=== PATIENT | male | born 1945 | race Caucasian/White ===

== ENCOUNTER 2020-05-29 03:23 | Emergency (ER) | payer OTHER, MEDICARE ==
[2020-05-29] MEDS ORDERED: DIPH/PERTUSS(ACELL)/TETANUS VAC/PF 0.5 ML SYR (>=10YO) IM ONE (04:08)
[2020-05-29] MEDS ORDERED: LIDOCAINE 1% INJ-PF (10 MG/ML) 30 ML SDV INJ ONE (04:16)
--- NOTE | 2020-05-29 04:18 | ER Document Report ---
ED Wound - General Chief Complaint: Laceration Stated Complaint: FALL,FACE LACERATION Time Seen by Provider: 05/29/20 04:03 Primary Care Provider: ANDREAS BAEZ MD [Primary Care Provider] - Follow up as needed Mode of Arrival: Ambulatory Information source: Patient Notes: 75-year-old male patient presents the emergency department concern for laceration. Patient reports he was sitting on the side of his bed when he fell asleep and fell forward striking his forehead onto his nightstand. Patient reports this occurred just prior to arrival. He did not lose consciousness, woke up as soon as he started falling. He denies any nausea or vomiting. Does not know when his last tetanus was. Dr. Doan is his primary care provider. TRAVEL OUTSIDE OF THE [place] IN LAST 30 DAYS: No - Related Data Allergies/Adverse Reactions: Sulfa (Sulfonamide Antibiotics) Allergy (Verified 12/29/11 11:23) RASH Home Medications: low dose asa, metoprolol, doxazosin, setratline, gabapentin, protonix, atorvastatin, cilostazol Past Medical History - General Information source: Patient - Social History Smoking Status: Current Every Day Smoker Family History: Reviewed & Not Pertinent - Past Medical History Cardiac Medical History: Reports: Hx Hypertension - PIERCE CURIEL Denies: Hx Heart Attack Pulmonary Medical History: Denies: Hx Asthma Neurological Medical History: Denies: Hx Cerebrovascular Accident, Hx Seizures GI Medical History: Denies: Hx Hepatitis, Hx Hiatal Hernia, Hx Ulcer Infectious Medical History: Denies: Hx Hepatitis Past Surgical History: Denies: Hx Open Heart Surgery, Hx Pacemaker Review of Systems - Review of Systems Skin: See HPI Physical Exam - Vital signs Vitals: Temp Pulse Resp BP Pulse Ox 98.0 F 98 20 175/80 H 97 05/29/20 03:32 05/29/20 03:32 05/29/20 03:32 05/29/20 03:32 05/29/20 03:32 - Notes Notes: PHYSICAL EXAMINATION: GENERAL: Well-appearing, well-nourished and in no acute distress. HEAD: Atraumatic, normocephalic. EYES: Pupils equal round and reactive to light, extraocular movements intact, sclera anicteric, conjunctiva are normal. ENT: Nares patent, oropharynx clear without exudates. Moist mucous membranes. NECK: Normal range of motion, supple without lymphadenopathy LUNGS: Breath sounds clear to auscultation bilaterally and equal. No wheezes rales or rhonchi. HEART: Regular rate and rhythm without murmurs ABDOMEN: Soft, nontender, nondistended abdomen. No guarding, no rebound. No masses appreciated. Musculoskeletal: Normal range of motion, no pitting or edema. No cyanosis. NEUROLOGICAL: Cranial nerves grossly intact. Normal speech, normal gait. Normal sensory, motor exams PSYCH: Normal mood, normal affect. SKIN: Laceration noted to forehead just superior to right eyebrow, irregular, deep, no active bleeding noted. Course - Re-evaluation Re-evalutation: Facial Bones CT 05/29/20 04:07 IMPRESSION: There are no findings to suggest an acute fracture or subluxation within the face. There is mild right periorbital soft tissue swelling present. - Vital Signs Vital signs: Temp Pulse Resp BP Pulse Ox 98.0 F 74 20 118/97 H 99 05/29/20 03:32 05/29/20 07:00 05/29/20 07:00 05/29/20 07:00 05/29/20 07:00 - Laboratory Results Critical Laboratory Results Reviewed: No Critical Results - Radiology Results Critical Radiology Results Reviewed: No Critical Results Procedures - Laceration/Wound Repair facial Wound length (cm): 3 Wound's Depth, Shape: Irregular Anesthetic type: 1% Lidocaine Wound explored: Clean Wound Debrided: Minimal Wound Repaired With: Sutures Suture Size/Type: 5:0, 4:0 Number of Sutures: 6 Layer Closure?: No Post-procedure wound care: Sterile dressing applied Post-procedure NV exam normal: Yes Complications: No Discharge - Discharge Clinical Impression: Facial laceration Qualifiers: Encounter type: initial encounter Qualified Code(s): S01.81XA - Laceration without foreign body of other part of head, initial encounter Condition: Stable Disposition: HOME, SELF-CARE Additional Instructions: Laceration Care Your laceration has been sutured to keep the skin edges aligned during healing. The time of suture removal depends on the nature and location of your cut. Please follow the care instructions the doctor has outlined for you and return for further care, according to the schedule you've been given. Keep the wound and dressing clean. Unless you were told otherwise, you may shower daily, blotting the wound dry with a clean, unused towel. At other times, If the dressing gets wet or blood soaked, remove it and blot the wound dry, then reapply a new dressing. Unless you were instructed otherwise, dressings should be changed at least daily. If any signs of infection occur (swelling, redness, increasing tenderness, red streaks, tender lumps in the armpit or groin above the laceration, or fever), see the doctor immediately. Please return to the emergency department or your primary care provider in 7 days for suture removal. There were 4 sutures placed above your eyebrow and 2 sutures placed just above your eyelid. Please return earlier if you develop any signs of infection such as increased redness, swelling, foul-smelling drainage or fever. Referrals: ANDREAS BAEZ MD [Primary Care Provider] - Follow up as needed
--- NOTE | 2020-05-29 06:06 | RADIOLOGY REPORT (SQ) ---
CT OF THE FACE: 05/29/2020 5:03 AM DISTRIBUTION AGENT TECHNIQUE: Axial helical images were obtained through the face without intravenous contrast administered. Coronal and sagittal reformatted images were also obtained and examined. This exam was performed according to our departmental dose-optimization program, which includes automated exposure control, adjustment of the mA and/or KV according to the patient's size and/or use of iterative reconstruction technique. COMPARISON: None available HISTORY: 75-year old patient with fall, laceration over the left eyebrow. FINDINGS: There is mild mucoperiosteal thickening of the ethmoid sinuses. The mandible is intact. The visualized mastoid air cells appear clear. The bilateral zygomatic arches are intact. The temporal mandibular joints are symmetric. Evaluation of the maxilla is limited by some dental artifact. There is mild right periorbital soft tissue swelling present. There are no findings to suggest an acute fracture or subluxation. No fluid is seen in the mastoid air cells. The bilateral globes appear symmetric. There are degenerative changes seen at the visualized cervical spine. IMPRESSION: There are no findings to suggest an acute fracture or subluxation within the face. There is mild right periorbital soft tissue swelling present.
[2020-05-29 07:06] VITALS: BP 118/97
== END 2020-05-29 07:14 | disposition home or self-care (01) ==
LOC: ER 03:23
DX: W06.XXXA Fall from bed, initial encounter (principal); W22.03XA Walked into furniture, initial encounter; Y93.84 Activity, sleeping; F17.200 Nicotine dependence, unspecified, uncomplicated; I10 Essential (primary) hypertension; Z79.82 Long term (current) use of aspirin; Z79.899 Other long term (current) drug therapy; Z88.2 Allergy status to sulfonamides; Z23 Encounter for immunization
CPT/HCPCS: 99284; 90471; 70486; 90715; 12013; J3490

== ENCOUNTER 2020-06-06 16:39 | Inpatient (IN) | payer MEDICARE, OTHER ==
[2020-06-06] MEDS ORDERED: ACETAMINOPHEN 325 MG TABLET PO ONE (17:15)
[2020-06-06] MEDS ORDERED: RINGERS LACTATED IV ONE (17:15)
--- NOTE | 2020-06-06 17:18 | ER Document Report ---
ED Medical Screen (RME) - General Chief Complaint: Dizziness Stated Complaint: DISORIENTED/POST HEAD INJURY Time Seen by Provider: 06/06/20 17:06 Primary Care Provider: ANDREAS BAEZ MD [Primary Care Provider] - Follow up as needed Notes: Patient presents complaining of difficulty walking with his legs giving out that started yesterday. Patient denies any headache chest pain cough or shortness of breath. Patient states yesterday he had low back pain although complains of upper back pain today. Patient does have a history of chronic back pain and previous spinal surgery in the past. Patient with low-grade fever in triage, denies any history of recent fever. I have greeted and performed a rapid initial assessment of this patient. A comprehensive ED assessment and evaluation of the patient, analysis of test results and completion of the medical decision making process will be conducted by additional ED providers. TRAVEL OUTSIDE OF THE [place] IN LAST 30 DAYS: No - Related Data Allergies/Adverse Reactions: Sulfa (Sulfonamide Antibiotics) Allergy (Verified 12/29/11 11:23) RASH Past Medical History - Past Medical History Cardiac Medical History: Reports: Hx Hypertension - PIERCE CURIEL Denies: Hx Heart Attack Pulmonary Medical History: Denies: Hx Asthma Neurological Medical History: Denies: Hx Cerebrovascular Accident, Hx Seizures GI Medical History: Denies: Hx Hepatitis, Hx Hiatal Hernia, Hx Ulcer Infectious Medical History: Denies: Hx Hepatitis Past Surgical History: Denies: Hx Open Heart Surgery, Hx Pacemaker Physical Exam - Vital signs Vitals: Temp Pulse Resp BP Pulse Ox 100.3 F 127 H 22 H 83/53 L 95 06/06/20 17:12 06/06/20 17:12 06/06/20 17:12 06/06/20 17:12 06/06/20 17:12 - Cardiovascular Rhythm: Tachycardia Heart sounds: S1 appreciated, S2 appreciated - Back Back: Vertebra tenderness - Upper thoracic midline tenderness T4 area Course - Re-evaluation Re-evalutation: 06/06/20 17:18 Charge nurse advised of patient's status as well as vital signs and need for room. - Vital Signs Vital signs: Temp Pulse Resp BP Pulse Ox 100.3 F 127 H 22 H 83/53 L 95 06/06/20 17:12 06/06/20 17:12 06/06/20 17:12 06/06/20 17:12 06/06/20 17:12 Doctor's Discharge - Discharge Referrals: ANRDEAS BAEZ MD [Primary Care Provider] - Follow up as needed
--- NOTE | 2020-06-06 17:46 | EKG REPORT ---
SEVERITY:- ABNORMAL ECG - SINUS TACHYCARDIA RIGHT BUNDLE BRANCH BLOCK BORDERLINE INFERIOR Q WAVES : Confirmed by: Loc Wheatley MD 06-Jun-2020 17:46:06
--- NOTE | 2020-06-06 17:49 | RADIOLOGY REPORT (SQ) ---
EXAM DESCRIPTION: CT HEAD WITHOUT IMAGES COMPLETED DATE/TIME: 06/06/2020 5:34 pm REASON FOR STUDY: gait abnormality COMPARISON: None. TECHNIQUE: Axial images acquired through the brain without intravenous contrast. Images reviewed wi th bone, brain and subdural windows. Additional sagittal and coronal reconstructions were generated. Images stored on PACS. All CT scanners at this facility use dose modulation, iterative reconstruction, and/or weight based d osing when appropriate to reduce radiation dose to as low as reasonably achievable (ALARA). [facility]: Dose Right [facility]: CareDose [facility]: Dose Right [facility]: Teradose 4D [facility]: Smart [employer] RADIATION DOSE: CT Rad equipment meets quality standard of care and radiation dose reduction techniq ues were employed. CTDIvol: 53.2 mGy. DLP: 964 mGy-cm. mGy. LIMITATIONS: None. FINDINGS: VENTRICLES: Normal size and contour. CEREBRUM: No masses. No hemorrhage. No midline shift. No evidence for acute infarction. Normal gra y/white matter differentiation. No areas of low density in the white matter. CEREBELLUM: No masses. No hemorrhage. No alteration of density. No evidence for acute infarction. EXTRAAXIAL SPACES: No fluid collections. No masses. ORBITS AND GLOBE: No intra- or extraconal masses. Normal contour of globe without masses. CALVARIUM: No fracture. PARANASAL SINUSES: No fluid or mucosal thickening. SOFT TISSUES: No mass or hematoma. OTHER: No other significant finding. IMPRESSION: NORMAL BRAIN CT WITHOUT CONTRAST. EVIDENCE OF ACUTE STROKE: NO. COMMENT: Quality ID # [id number]: Final reports with documentation of one or more dose reduction techniques (e.g., Automated exposure control, adjustment of the mA and/or kV according to patient size, use of iterative reconstruction technique) TECHNICAL DOCUMENTATION: JOB ID: [id number] 2010 [employer]- All Rights Reserved Reading location - IP/workstation name: [email or web address]
--- NOTE | 2020-06-06 17:49 | RADIOLOGY REPORT (SQ) ---
EXAM DESCRIPTION: CHEST SINGLE VIEW IMAGES COMPLETED DATE/TIME: 06/06/2020 5:33 pm REASON FOR STUDY: weakness, hypotension COMPARISON: None. EXAM PARAMETERS: NUMBER OF VIEWS: One view. TECHNIQUE: Single frontal radiographic view of the chest acquired. RADIATION DOSE: NA LIMITATIONS: None. FINDINGS: LUNGS AND PLEURA: No opacities, masses or pneumothorax. No pleural effusion. MEDIASTINUM AND HILAR STRUCTURES: No masses. Contour normal. HEART AND VASCULAR STRUCTURES: Heart normal in size. Normal vasculature. BONES: No acute findings. HARDWARE: None in the chest. OTHER: No other significant finding. IMPRESSION: NO ACUTE RADIOGRAPHIC FINDING IN THE CHEST. TECHNICAL DOCUMENTATION: JOB ID: [id number] 2010 [employer]- All Rights Reserved Reading location - IP/workstation name: [email or web address]
--- NOTE | 2020-06-06 17:50 | RADIOLOGY REPORT (SQ) ---
EXAM DESCRIPTION: T SPINE AP/LAT IMAGES COMPLETED DATE/TIME: 06/06/2020 5:33 pm REASON FOR STUDY: upper back pain COMPARISON: None. NUMBER OF VIEWS: Two views. TECHNIQUE: AP and lateral radiographic images acquired of the thoracic spine. LIMITATIONS: None. FINDINGS: MINERALIZATION: Normal. ALIGNMENT: Normal. No scoliosis. VERTEBRAE: No fracture or bone lesion. Maintained height, normal segmentation. DISCS: No significant loss of height or significant narrowing. No large osteophytes. HARDWARE: None in the spine. MEDIASTINUM AND SOFT TISSUES: Normal heart size and aortic contour. No soft tissue abnormality. VISUALIZED LUNG BLACK: Clear. OTHER: No other significant finding. IMPRESSION: NO SIGNIFICANT RADIOGRAPHIC FINDING IN THE THORACIC SPINE. TECHNICAL DOCUMENTATION: JOB ID: [id number] 2010 [employer]- All Rights Reserved Reading location - IP/workstation name: [email or web address]
[2020-06-06 18:09] LABS: ABSOLUTE BASOPHILS # (AUTO) 0.1 10^3/uL (0.0-0.2); ABSOLUTE LYMPHOCYTES (AUTO) 1.1 10^3/uL (0.5-4.7); ABSOLUTE MONOCYTES (AUTO) 2.2 10^3/uL (0.1-1.4); ABSOLUTE NEUT (AUTO) 15.5 10^3/uL (1.7-8.2); BASOPHILS % (AUTO) 0.3 % (0-2); EOSINOPHILS % (AUTO) 0.1 % (0-6); HEMATOCRIT 38.3 % (37.9-51.0); HEMOGLOBIN 13.2 g/dL (13.5-17.0); LYMPHOCYTES % (AUTO) 5.6 % (13-45); MEAN CORPUSCULAR HEMOGLOBIN 31.6 pg (27.0-33.4); MEAN CORPUSCULAR HGB CONC 34.5 g/dL (32.0-36.0); MEAN CORPUSCULAR VOLUME 92 fl (80-97); MONOCYTES % (AUTO) 11.6 % (3-13); PLATELET COUNT 215 10^3/uL (150-450); RED BLOOD COUNT 4.18 10^6/uL (4.35-5.55); SEGMENTED NEUTROPHILS % (AUTO) 82.4 % (42-78); TOTAL CELLS COUNTED % (AUTO) 100 %; WHITE BLOOD COUNT 18.8 10^3/uL (4.0-10.5)
[2020-06-06 18:10] LABS: VENOUS BLOOD BASE EXCESS -0.5 mmol/L; VENOUS BLOOD HCO3 22.1 mmol/L (20-32); VENOUS BLOOD PCO2 31.6 mmHg (35-63); VENOUS BLOOD PH 7.46 (7.30-7.42)
[2020-06-06 18:14] LABS: INTERNATIONAL RATION (INR) 1.21; PROTHROMBIN TIME 15.5 SEC (11.4-15.4)
[2020-06-06 18:28] LABS: ALBUMIN 3.6 g/dL (3.5-5.0); ALKALINE PHOSPHATASE 91 U/L (38-126); ANION GAP 10 (5-19); ASPARTATE AMINO TRANSFERASE 25 U/L (17-59); BILIRUBIN,TOTAL 1.1 mg/dL (0.2-1.3); BLOOD UREA NITROGEN 21 mg/dL (7-20); CALCIUM 9.4 mg/dL (8.4-10.2); CARBON DIOXIDE 23 mmol/L (22-30); CHLORIDE 99 mmol/L (98-107); GLUCOSE 135 mg/dL (75-110); POTASSIUM 4.3 mmol/L (3.6-5.0); TOTAL PROTEIN 6.6 g/dL (6.3-8.2)
--- NOTE | 2020-06-06 18:33 | ER Document Report ---
ED General - General Chief Complaint: Dizziness Stated Complaint: DISORIENTED/POST HEAD INJURY Time Seen by Provider: 06/06/20 17:06 Primary Care Provider: ANDREAS BAEZ MD [Primary Care Provider] - Follow up as needed TRAVEL OUTSIDE OF THE [place] IN LAST 30 DAYS: No - HPI Notes: 75-year-old male presents with generalized weakness. Patient states that he had a recent fall from standing, he hit his face against a nightstand. He states that he was seen and evaluated at another hospital, he had stitches placed, stitches were removed yesterday. Patient states that he was diagnosed with a concussion, he notes that he has been sleeping a lot more than usual. The last time he fell was about a year ago. Patient states that today he seemed to have some generalized weakness. He states that when he tried to stand up and walk, he felt his legs jerk and go out from under him, he states that he felt like he could not use his legs and needed to be carried. He reports some dizziness as well. States that he did not fall today. Patient states he has chronic low back pain, he has had surgery on his back before. He denies chest pain. Denies shortness of breath, states that he has a smoker's cough. He denies abdominal pain, nausea, vomiting or diarrhea. He denies dysuria. - Related Data Allergies/Adverse Reactions: Sulfa (Sulfonamide Antibiotics) Allergy (Verified 12/29/11 11:23) RASH Past Medical History - General Information source: Patient - Social History Smoking Status: Current Every Day Smoker Family History: Reviewed & Not Pertinent - Past Medical History Cardiac Medical History: Reports: Hx Hypertension - PIERCE CURIEL Denies: Hx Heart Attack Pulmonary Medical History: Denies: Hx Asthma Neurological Medical History: Denies: Hx Cerebrovascular Accident, Hx Seizures GI Medical History: Denies: Hx Hepatitis, Hx Hiatal Hernia, Hx Ulcer Infectious Medical History: Denies: Hx Hepatitis Past Surgical History: Denies: Hx Open Heart Surgery, Hx Pacemaker Review of Systems - Review of Systems Constitutional: denies: Fever EENT: No symptoms reported Cardiovascular: denies: Chest pain Respiratory: denies: Short of breath Gastrointestinal: denies: Abdominal pain, Diarrhea, Nausea, Vomiting Genitourinary: denies: Dysuria Male Genitourinary: No symptoms reported Musculoskeletal: Back pain Skin: No symptoms reported Hematologic/Lymphatic: No symptoms reported Neurological/Psychological: See HPI Physical Exam - Vital signs Vitals: Temp Pulse Resp BP Pulse Ox 100.3 F 127 H 22 H 83/53 L 95 06/06/20 17:12 06/06/20 17:12 06/06/20 17:12 06/06/20 17:12 06/06/20 17:12 - General General appearance: Appears well, Alert In distress: None - HEENT Head: Normocephalic, Atraumatic Extraocular movements intact: Yes Pupils: PERRL - Respiratory Breath sounds: Normal - Cardiovascular Rhythm: Regular Heart sounds: Normal auscultation - Abdominal Distension: No distension Bowel sounds: Normal Tenderness: Nontender - Back Back: Tender - Bilateral lumbosacral area - Extremities General upper extremity: Normal ROM General lower extremity: Normal ROM. No: Edema - Neurological Neuro grossly intact: Yes Cognition: Normal Orientation: AAOx4 Notes: Face is symmetric, speech is clear. Strength 5/5 upper extremities, he is able to use his arms to sit himself up in bed. Strength is 4/5 in the lower extremities, he has symmetric dorsiflexion and plantarflexion, he is able to lift both legs off the bed though is only able to hold his legs up for a few seconds. Sensation is grossly intact to lower extremities. No saddle anesthesia. - Psychological Associated symptoms: Normal affect - Skin Skin Temperature: Warm Course - Re-evaluation Re-evalutation: 75-year-old male here with generalized weakness and difficulty ambulating today. On arrival, patient's vitals were notable for temperature 100.3, heart rate 127, BP 83/53. By the time of my evaluation patient's heart rate had decreased to 109 and blood pressure had improved to 123/50. Patient is alert and oriented, he is nontoxic-appearing. He is grossly neurologically intact, I currently do not have evidence of saddle anesthesia or unilateral deficit. He has symmetric 4-5 weakness to his legs, however he has intact motor and sensation. Given his almost fever and vital signs, I am concerned for source of infection. He had a head CT, chest x-ray and thoracic spine x-ray done through triage which are negative for acute findings. I have added on a lumbar MRI to see if there is any evidence of discitis or epidural abscess as he has had surgeries here in the past. He does have a leukocytosis of almost 19 with a left shift. Elevated creatinine of 2, no previous available for comparison. I added on a CRP which was elevated as well. Patient is undergoing fluid resuscitation. Cultures have been sent. 06/07/20 00:59 MRI lumbar spine does not demonstrate pathologic contrast enhancement, no epidural abscess or hematoma. Urine not suggestive of UTI, does have microscopic hematuria. Lactic has down trended. I went in to discuss work-up so far with patient. He reports he is actually feeling much better and he can "do more with my legs than I could all day", meaning that he is able to stand up and bear weight. Patient continues to be neurologically intact, motor and sensory intact to his lower extremities. Have ordered a repeat BMP to see if ?ALEKSANDR has improved. Have also ordered CT abdomen to see if there is any evidence of intra-abdominal infection could be attributing to his presentation today 06/07/20 01:34 Creatinine with some improvement 06/07/20 02:13 Patient signed out, pending CT abdomen. If negative, I do believe patient will need admission for further work-up of what is causing his substantial maisha kocytosis - Vital Signs Vital signs: Temp Pulse Resp BP Pulse Ox 100.3 F 100 39 H 106/37 L 97 06/06/20 17:12 06/06/20 19:40 06/06/20 20:01 06/06/20 20:01 06/06/20 19:40 - Laboratory Results Result Diagrams: 06/06/20 17:50 06/07/20 01:00 Laboratory Results Interpreted: 06/06/20 06/06/20 06/06/20 17:50 17:50 17:50 WBC 18.8 H RBC 4.18 L Hgb 13.2 L Lymph % (Auto) 5.6 L Absolute Neuts (auto) 15.5 H Absolute Monos (auto) 2.2 H Seg Neutrophils % 82.4 H PT 15.5 H VBG pH VBG pCO2 Sodium BUN Creatinine Est GFR ( Amer) Est GFR (MDRD) Non-Af Glucose Lactic Acid 2.2 H C-Reactive Protein Urine Protein Urine Blood 06/06/20 06/06/20 06/06/20 17:50 17:50 17:50 WBC RBC Hgb Lymph % (Auto) Absolute Neuts (auto) Absolute Monos (auto) Seg Neutrophils % PT VBG pH 7.46 H VBG pCO2 31.6 L Sodium 131.6 L BUN 21 H Creatinine 2.06 H Est GFR ( Amer) 38 L Est GFR (MDRD) Non-Af 32 L Glucose 135 H Lactic Acid C-Reactive Protein 165.5 H Urine Protein Urine Blood 06/07/20 06/07/20 00:15 01:00 WBC RBC Hgb Lymph % (Auto) Absolute Neuts (auto) Absolute Monos (auto) Seg Neutrophils % PT VBG pH VBG pCO2 Sodium 131.8 L BUN 27 H Creatinine 1.89 H Est GFR ( Amer) 43 L Est GFR (MDRD) Non-Af 35 L Glucose Lactic Acid C-Reactive Protein Urine Protein 30 H Urine Blood SMALL H Critical Laboratory Results Reviewed: No Critical Results - Radiology Results Critical Radiology Results Reviewed: No Critical Results - EKG Interpretation by Me Additional EKG results interpreted by me: EKG is interpreted by me. Sinus tachycardia, rate 114. RBBB. QTc within normal limits. No ST segment elevation. Discharge - Discharge Clinical Impression: Leukocytosis Qualifiers: Leukocytosis type: unspecified Qualified Code(s): D72.829 - Elevated white blood cell count, unspecified Disposition: OTHER Referrals: ANDREAS BAEZ MD [Primary Care Provider] - Follow up as needed
[2020-06-06] MEDS ORDERED: LORAZEPAM INJ 2 MG/1 ML VIAL IV PRN (20:03)
--- NOTE | 2020-06-06 22:44 | RADIOLOGY REPORT (SQ) ---
MRI lumbar spine with and without contrast on 06/06/2020 at 10:01 PM CLINICAL INDICATION: Fever, low back pain that radiates down legs, leg weakness TECHNIQUE: Multiplanar, multisequence MR images are obtained throughout the lumbar spine both prior to and following the administration of IV gadolinium contrast. This examination was performed on a 1.5 Alyse magnet. COMPARISON: None FINDINGS: Motion limits some of the exam. On the rn travel images there is suggestion of massive distention of the urinary bladder that is incompletely imaged and cannot verify this is a bladder versus possibly large cystic mass. Would recommend CT of the abdomen and pelvis to better evaluate. There is disc desiccation and degeneration of the lumbar disks. There is a transitional lumbosacral vertebral body. Iliolumbar ligaments are visualized on axial image 28 of series 7 labeling this as L5 which makes some lumbarization of S1 with rudimentary S1-S2 disc. There is normal signal within the conus which terminates at a normal level. There is minimal grade 1 spondylolisthesis at L4-5 secondary to degenerative facet disease. There is slight leftward curvature of the lower lumbar spine. Vertebral body height, alignment and signal intensity is otherwise unremarkable. There is no pathologic contrast enhancement. No epidural collection to suggest epidural abscess or hematoma is noted. At the L2-3 level, minimal broad-based disc bulge produces minimal canal stenosis and mild left foraminal narrowing. At the L3-4 level, mild broad-based disc bulge and facet arthropathy produces mild canal stenosis and mild bilateral foraminal narrowing. At the L4-5 level, mild broad-based disc bulge and facet arthropathy produces mild to moderate canal stenosis and moderate right and mild to moderate left foraminal narrowing. At the L5-S1 level, mild broad-based disc bulge and facet arthropathy produces mild canal stenosis and [id number] right foraminal narrowing. IMPRESSION: 1. Probable massive distention of the urinary bladder that is incompletely imaged, would recommend follow-up CT of the abdomen and pelvis to better evaluate. 2. Diffuse degenerative disc disease and facet arthropathy producing some levels of canal stenosis and foraminal narrowing as above.
[2020-06-07 00:49] LABS: APPEARANCE,URINE SLIGHTLY-CLOUDY; BILIRUBIN,URINE NEGATIVE (NEGATIVE); COLOR,URINE YELLOW; GLUCOSE, URINE NEGATIVE (NEGATIVE); KETONES,URINE NEGATIVE (NEGATIVE); PROTEIN,URINE 30 mg/dL (NEGATIVE); URINE SPECIFIC GRAVITY 1.016; UROBILINOGEN,URINE NEGATIVE mg/dL (<2.0)
[2020-06-07 01:31] LABS: ANION GAP 6 (5-19); BLOOD UREA NITROGEN 27 mg/dL (7-20); CALCIUM 8.8 mg/dL (8.4-10.2); CARBON DIOXIDE 26 mmol/L (22-30); CHLORIDE 100 mmol/L (98-107); GLUCOSE 104 mg/dL (75-110)
--- NOTE | 2020-06-07 03:01 | RADIOLOGY REPORT (SQ) ---
CT abdomen and pelvis with contrast on 06/07/2020 at 2:35 AM CLINICAL INDICATION: Fever, low back pain TECHNIQUE: Multiple axial images are obtained throughout the abdomen and pelvis following the administration of IV contrast, 100 mL of Omnipaque 300contrast was administered intravenously without complication. This exam was performed according to our departmental dose-optimization program, which includes automated exposure control, adjustment of the mA and/or kV according to patient size and/or use of iterative reconstruction technique. Total DLP is 2858.91 mGy*cm. COMPARISON: None FINDINGS: Abdomen: There is minimal basilar atelectasis or scarring. Gallstones are noted within distended gallbladder. There is significant gallbladder wall thickening with surrounding fat stranding consistent with acute cholecystitis, recommend surgical consultation. There is a focal outpouching along the superior aspect of the gallbladder involving the area of mucosal enhancement seen well on sagittal images 24 through 26 and between coronal images 29 and 41. There is no evidence of gallbladder perforation but the appearance raises a question of some weakening of the gallbladder wall in this region. The solid abdominal organs are otherwise unremarkable. Vascular calcifications are noted. There is no abdominal adenopathy. There is no free fluid or free air within the abdomen. There is mild diverticulosis. The abdominal portion of the GI tract is otherwise unremarkable. Pelvis: There is significant plaque in the proximal right common iliac artery producing likely approximate 70% stenosis, please correlate with any right lower extremity symptoms and consider vascular surgery consultation on a nonemergent basis. There is massive enlargement of the urinary bladder with apparently a bladder diverticulum along the posterior right aspect of the bladder containing multiple bladder stones. Urinary bladder extends above the umbilicus and would recommend Du catheter placement. The prostate is mildly enlarged, please correlate with physical exam and PSA levels. There is no pelvic adenopathy. There is no free fluid in the pelvis. There is diverticulosis. The pelvic portion of the GI tract is otherwise unremarkable. Degenerative changes are noted in the spine. IMPRESSION: 1. Cholelithiasis with findings consistent with acute cholecystitis, recommend surgical consultation. 2. Massive urinary bladder distention with multiple bladder stones within apparent bladder diverticulum. Consider Du catheter placement. 3. Diverticulosis. 4. Mild prostate enlargement. 5. Likely approximate 70% stenosis in the right common iliac artery, please correlate with any right lower extremity symptoms and consider nonemergent vascular surgery consultation.
[2020-06-07] MEDS ORDERED: PIPERACILLIN/TAZOBACTAM 4.5 GM VIAL IV ONE ×2 (03:07→06:00)
--- NOTE | 2020-06-07 05:46 | ER Document Report ---
Doctor's Note Notes: 06/07/20 05:45 Patient was signed out to me pending CT results. CT shows acute cholecystitis and an enlarged bladder. Du was placed and patient had about 3 L out. I discussed with surgery, Dr. German, who will come evaluate the patient. He was started on Zosyn. Disposition is pending surgery consult. Patient has been updated on the plan. Dr. German stated that patient should be admitted medically due to his multiple medical problems as he will need to be cleared for surgery. 06/07/20 06:24
--- NOTE | 2020-06-07 06:59 | PDOC CONSULTATION ---
Consultation Consult Date: 06/07/20 Provider Consulted: GARRY TOMLINSON Consult reason:: Acute cholecystitis, cholelithiasis History of Present Illness Admission Date/PCP: ANDREAS BAEZ MD History of Present Illness: LORETO GUERRERO is a 75 year old male Presents to the emergency department via ground rescue for the second time in several weeks to collapsing. Patient poor historian. Apparently patient falls asleep while sitting up. His fall 2 weeks ago resulted in facial soft tissue trauma requiring laceration closure at an outlying hospital. Patient presents to [facility] yesterday complaining of back pain, inability to move his legs properly. He has a history of degenerative disc disease, and 2 previous lower back surgeries. He was found to be tachycardic and hypotensive and responded to flu id resuscitation. He had an extensive work-up including MRI scans of his back, CT scans of his chest abdomen and brain. These studies revealed extensive lower back degenerative disc disease, massively distended urinary bladder with multiple kidney stones, distended gallbladder, gallbladder wall thickening and multiple gallstones, extensive atherosclerotic peripheral vascular disease, with near occlusion of the right common iliac artery. Patient Covid test negative. He had a leukocytosis of 19,000. Surgery was consulted and patient evaluated and advised admission to the medicine service. While in the emergency department patient's blood pressure and heart rate stabilized; Du catheter was inserted with drainage of over 3500 cc of urine. Past Medical History Past Medical History: Atherosclerotic peripheral vascular disease, degenerative disc disease, urinary retention, nephrolithiasis, acute cholecystitis with cholelithiasis, prostatism Cardiac Medical History: Reports: Hypertension - BINH CURIELZASHIRA Denies: Myocardial Infarction Pulmonary Medical History: Denies: Asthma Neurological Medical History: Denies: Seizures GI Medical History: Denies: Hepatitis, Hiatal Hernia Hematology: Denies: Anemia, Sickle Cell Disease Past Surgical History Past Surgical History: Struve appendectomy, open lumbar surgery x2 Past Surgical History: Denies: Pacemaker Social History Information Source: Patient Smoking Status: Current Every Day Smoker Frequency of Alcohol Use: Social Family History Family History: None, Reviewed & Not Pertinent Parental Family History Reviewed: No Children Family History Reviewed: No Sibling(s) Family History Reviewed.: No Medication/Allergy Home Medications: Doxazosin Mesylate [Cardura 1 Mg Tablet] 1 mg PO DAILY 12/29/11 Gabapentin [Neurontin 300 Mg Capsule] 300 mg PO DAILY 12/29/11 Losartan Potassium [Cozaar 50 Mg Tablet] 50 mg PO DAILY 12/29/11 Sertraline HCl [Zoloft 50 Mg Tablet] 50 mg PO 12/29/11 Allergies/Adverse Reactions: Sulfa (Sulfonamide Antibiotics) Allergy (Verified 12/29/11 11:23) RASH Review of Systems Constitutional: PRESENT: as per HPI Eyes: PRESENT: other - Recent facial trauma Cardiovascular: PRESENT: as per HPI Genitourinary: PRESENT: as per HPI Musculoskeletal: PRESENT: other - Lower extremity weakness Neurological: PRESENT: frequent falls Physical Exam Vital Signs: Temp Pulse Resp BP Pulse Ox 100.3 F 100 39 H 106/37 L 97 06/06/20 17:12 06/06/20 19:40 06/06/20 20:01 06/06/20 20:01 06/06/20 19:40 Intake & Output 06/05/20 06/06/20 06/07/20 06:59 06:59 06:59 Intake Total 3120 Balance 3120 Weight 104.1 kg General appearance: PRESENT: mild distress Head exam: PRESENT: normocephalic Eye exam: PRESENT: other - Recent lacerations the Teeth exam: PRESENT: dental caries Neck exam: PRESENT: full ROM Respiratory exam: PRESENT: rhonchi Pulses: PRESENT: normal carotid pulses, normal radial pulses, other - Unable to palpate right common femoral artery pulse GI/Abdominal exam: PRESENT: other - Extreme right upper quadrant tenderness with guarding; remainder of abdomen soft. Indwelling Du catheter Rectal exam: PRESENT: deferred Extremities exam: PRESENT: +1 edema, other - Able to move legs in bed against mild resistance Skin exam: PRESENT: dry Results Laboratory Results: 06/06/20 17:50 06/07/20 01:00 06/06/20 06/06/20 06/06/20 17:50 17:50 17:50 WBC 18.8 H RBC 4.18 L Hgb 13.2 L Hct 38.3 MCV 92 MCH 31.6 MCHC 34.5 RDW 14.0 Plt Count 215 Seg Neutrophils % 82.4 H VBG pH VBG pCO2 VBG HCO3 VBG Base Excess Sodium 131.6 L Potassium 4.3 Chloride 99 Carbon Dioxide 23 Anion Gap 10 BUN 21 H Creatinine 2.06 H Est GFR ( Amer) 38 L Glucose 135 H Lactic Acid 2.2 H Calcium 9.4 Total Bilirubin 1.1 AST 25 Alkaline Phosphatase 91 C-Reactive Protein Total Protein 6.6 Albumin 3.6 Urine Color Urine Appearance Urine pH Ur Specific [place] Urine Protein Urine Glucose (UA) Urine Ketones Urine Blood Urine RBC (Auto) 06/06/20 06/06/20 06/06/20 17:50 17:50 22:30 WBC RBC Hgb Hct MCV MCH MCHC RDW Plt Count Seg Neutrophils % VBG pH 7.46 H VBG pCO2 31.6 L VBG HCO3 22.1 VBG Base Excess -0.5 Sodium Potassium Chloride Carbon Dioxide Anion Gap BUN Creatinine Est GFR ( Amer) Glucose Lactic Acid 1.4 Calcium Total Bilirubin AST Alkaline Phosphatase C-Reactive Protein 165.5 H Total Protein Albumin Urine Color Urine Appearance Urine pH Ur Specific [place] Urine Protein Urine Glucose (UA) Urine Ketones Urine Blood Urine RBC (Auto) 06/07/20 06/07/20 06/07/20 00:15 01:00 05:35 WBC RBC Hgb Hct MCV MCH MCHC RDW Plt Count Seg Neutrophils % VBG pH VBG pCO2 VBG HCO3 VBG Base Excess Sodium 131.8 L Potassium 4.0 Chloride 100 Carbon Dioxide 26 Anion Gap 6 BUN 27 H Creatinine 1.89 H Est GFR ( Amer) 43 L Glucose 104 Lactic Acid 1.2 Calcium 8.8 Total Bilirubin AST Alkaline Phosphatase C-Reactive Protein Total Protein Albumin Urine Color YELLOW Urine Appearance SLIGHTLY-CLOUDY Urine pH 7.0 Ur Specific [place] 1.016 Urine Protein 30 H Urine Glucose (UA) NEGATIVE Urine Ketones NEGATIVE Urine Blood SMALL H Urine RBC (Auto) 61 Impressions: Chest X-Ray 06/06/20 17:15 IMPRESSION: NO ACUTE RADIOGRAPHIC FINDING IN THE CHEST. Thoracic Spine X-Ray 06/06/20 17:15 IMPRESSION: NO SIGNIFICANT RADIOGRAPHIC FINDING IN THE THORACIC SPINE. Head CT 06/06/20 17:27 IMPRESSION: NORMAL BRAIN CT WITHOUT CONTRAST. EVIDENCE OF ACUTE STROKE: NO. Lumbar Spine MRI 06/06/20 18:46 IMPRESSION: 1. Probable massive distention of the urinary bladder that is incompletely imaged, would recommend follow-up CT of the abdomen and pelvis to better evaluate. 2. Diffuse degenerative disc disease and facet arthropathy producing some levels of canal stenosis and foraminal narrowing as above. Abdomen/Pelvis CT 06/07/20 00:56 IMPRESSION: 1. Cholelithiasis with findings consistent with acute cholecystitis, recommend surgical consultation. 2. Massive urinary bladder distention with multiple bladder stones within apparent bladder diverticulum. Consider Du catheter placement. 3. Diverticulosis. 4. Mild prostate enlargement. 5. Likely approximate 70% stenosis in the right common iliac artery, please correlate with any right lower extremity symptoms and consider nonemergent vascular surgery consultation. Assessment & Plan - Diagnosis (1) Sepsis Is this a current diagnosis for this admission?: Yes Plan: Impression: Acute septic episode with dynamic instability, now responding to fluid resuscitation; primary source likely acute cholecystitis with cholelithiasis. Recommendations: 1. Continue fluids, intravenous antibiotic resuscitation; admit to hospitalist service with surgery consulting-this was discussed with sieve maker, as well as emergency room physician. 2. Keep n.p.o. 3. I have spoken with Dr. Loc Wheatley, watch crystal edge grinder, who will see patient in consultation, obtain echocardiogram, and assess perioperative cardiac risk 4. Will eventually require laparoscopic, possible open cholecystectomy. (2) Leukocytosis Qualifiers: Leukocytosis type: unspecified Qualified Code(s): D72.829 - Elevated white blood cell count, unspecified (3) Atherosclerotic peripheral vascular disease Is this a current diagnosis for this admission?: Yes (4) Cholecystitis, acute with cholelithiasis Is this a current diagnosis for this admission?: Yes (5) Urinary retention Is this a current diagnosis for this admission?: Yes (6) Abuse of smoked substance Is this a current diagnosis for this admission?: Yes (7) Degenerative disc disease Is this a current diagnosis for this admission?: Yes - Time Time Spent: 30 to 50 Minutes Smoking Cessation Education: over 10 minutes Medications reviewed and adjusted accordingly: Yes Anticipated discharge: Home - Inpatient Certification Based on my medical assessment, after consideration of the patient's comorbidities, presenting symptoms, or acuity I expect that the services needed warrant INPATIENT care.: Yes I certify that my determination is in accordance with my understanding of Medicare's requirements for reasonable and necessary INPATIENT services [42 CFR 412.3e].: Yes Medical Necessity: Need For IV Fluids, Need for Pain Control, Need for IV Antibiotics, Need for Surgery
[2020-06-07] MEDS ORDERED: ONDANSETRON HCL INJ/PF 4 MG/2 ML SDV IV PRN (08:00)
[2020-06-07] MEDS ORDERED: ACETAMINOPHEN 325 MG TABLET PO PRN (08:00)
[2020-06-07] MEDS ORDERED: HYDRALAZINE HCL INJ/PF 20 MG/1 ML SDV IV PRN (08:43)
--- NOTE | 2020-06-07 08:44 | PDOC H&P ---
History of Present Illness Admission Date/PCP: ANDREAS BAEZ MD Patient complains of: Patient came to the emergency room with nonspecific symptoms, found to have acute cholecystitis. History of Present Illness: LORETO GUERRERO is a 75 year old male with history of hypertension, chronic smoker, severe peripheral vascular disease, chronic back pain with multiple surgeries, has urinary retention Du's catheter was placed in the emergency room, past 3 L of urine as per the patient came to the emergency room with complaints of falls and weakness extensive work-up was done found to have acute cholecystitis. Surgery was consulted their impression is patient need c ardiology clearance prior to surgery. Past Medical History Cardiac Medical History: Reports: Hypertension - CARDURA, COZAAR Denies: Myocardial Infarction Pulmonary Medical History: Denies: Asthma Neurological Medical History: Denies: Seizures Renal/ Medical History: Reports: None Malignancy Medical History: Reports: None GI Medical History: Denies: Hepatitis, Hiatal Hernia Musculoskeltal Medical History: Reports: None Psychiatric Medical History: Reports: None Traumatic Medical History: Reports: None Hematology: Denies: Anemia, Sickle Cell Disease Past Surgical History Past Surgical History: Denies: Pacemaker Social History Smoking Status: Current Every Day Smoker Frequency of Alcohol Use: Social - Advance Directive Resuscitation Status: Do Not Resuscitate Family History Family History: None, Reviewed & Not Pertinent Family History: Hypertension Parental Family History Reviewed: Yes - Hypertension Children Family History Reviewed: Yes Sibling(s) Family History Reviewed.: Yes Medication/Allergy Home Medications: Doxazosin Mesylate [Cardura 1 Mg Tablet] 1 mg PO DAILY 12/29/11 Gabapentin [Neurontin 300 Mg Capsule] 300 mg PO DAILY 12/29/11 Losartan Potassium [Cozaar 50 Mg Tablet] 50 mg PO DAILY 12/29/11 Sertraline HCl [Zoloft 50 Mg Tablet] 50 mg PO 12/29/11 Allergies/Adverse Reactions: Sulfa (Sulfonamide Antibiotics) Allergy (Verified 12/29/11 11:23) RASH Review of Systems Constitutional: PRESENT: fatigue, weakness. ABSENT: chills, fever(s), headache(s) Eyes: ABSENT: visual disturbances Ears: ABSENT: hearing changes Nose, Mouth, and Throat: ABSENT: sore throat Cardiovascular: ABSENT: palpitations Respiratory: ABSENT: cough, hemoptysis Gastrointestinal: ABSENT: abdominal pain, constipation, diarrhea, hematemesis, hematochezia, nausea, vomiting Musculoskeletal: ABSENT: joint swelling Neurological: ABSENT: abnormal gait, abnormal speech, confusion, dizziness, focal weakness, syncope Psychiatric: ABSENT: anxiety, depression, homidical ideation, suicidal ideation Endocrine: ABSENT: cold intolerance, heat intolerance, polydipsia, polyuria Physical Exam Vital Signs: Temp Pulse Resp BP Pulse Ox 100.3 F 93 20 173/70 H 96 06/06/20 17:12 06/07/20 01:00 06/07/20 07:31 06/07/20 07:31 06/07/20 07:31 Intake & Output 06/06/20 06/07/20 06/08/20 06:59 06:59 06:59 Intake Total 3120 Balance 3120 Weight 104.1 kg General appearance: PRESENT: no acute distress, obese Eye exam: PRESENT: PERRLA Ear exam: PRESENT: normal external ear exam Teeth exam: PRESENT: poor dentation Neck exam: ABSENT: carotid bruit, JVD, lymphadenopathy, thyromegaly Respiratory exam: PRESENT: decreased breath sounds Cardiovascular exam: PRESENT: RRR. ABSENT: diastolic murmur, rubs, systolic murmur Pulses: PRESENT: normal dorsalis pedis pul GI/Abdominal exam: PRESENT: normal bowel sounds, soft. ABSENT: distended, guarding, mass, organolmegaly, rebound, tenderness Rectal exam: PRESENT: deferred Extremities exam: PRESENT: full ROM. ABSENT: calf tenderness, clubbing, pedal edema Neurological exam: PRESENT: alert, awake, oriented to person, oriented to place, oriented to time, oriented to situation, CN II-XII grossly intact. ABSENT: motor sensory deficit Psychiatric exam: PRESENT: appropriate affect, normal mood. ABSENT: homicidal ideation, suicidal ideation Results Laboratory Results: 06/06/20 17:50 06/07/20 01:00 06/06/20 06/06/20 06/06/20 17:50 17:50 17:50 WBC 18.8 H RBC 4.18 L Hgb 13.2 L Hct 38.3 MCV 92 MCH 31.6 MCHC 34.5 RDW 14.0 Plt Count 215 Seg Neutrophils % 82.4 H VBG pH VBG pCO2 VBG HCO3 VBG Base Excess Sodium 131.6 L Potassium 4.3 Chloride 99 Carbon Dioxide 23 Anion Gap 10 BUN 21 H Creatinine 2.06 H Est GFR ( Amer) 38 L Glucose 135 H Lactic Acid 2.2 H Calcium 9.4 Total Bilirubin 1.1 AST 25 Alkaline Phosphatase 91 C-Reactive Protein Total Protein 6.6 Albumin 3.6 Urine Color Urine Appearance Urine pH Ur Specific [place] Urine Protein Urine Glucose (UA) Urine Ketones Urine Blood Urine RBC (Auto) 06/06/20 06/06/20 06/06/20 17:50 17:50 22:30 WBC RBC Hgb Hct MCV MCH MCHC RDW Plt Count Seg Neutrophils % VBG pH 7.46 H VBG pCO2 31.6 L VBG HCO3 22.1 VBG Base Excess -0.5 Sodium Potassium Chloride Carbon Dioxide Anion Gap BUN Creatinine Est GFR ( Amer) Glucose Lactic Acid 1.4 Calcium Total Bilirubin AST Alkaline Phosphatase C-Reactive Protein 165.5 H Total Protein Albumin Urine Color Urine Appearance Urine pH Ur Specific [place] Urine Protein Urine Glucose (UA) Urine Ketones Urine Blood Urine RBC (Auto) 06/07/20 06/07/20 06/07/20 00:15 01:00 05:35 WBC RBC Hgb Hct MCV MCH MCHC RDW Plt Count Seg Neutrophils % VBG pH VBG pCO2 VBG HCO3 VBG Base Excess Sodium 131.8 L Potassium 4.0 Chloride 100 Carbon Dioxide 26 Anion Gap 6 BUN 27 H Creatinine 1.89 H Est GFR ( Amer) 43 L Glucose 104 Lactic Acid 1.2 Calcium 8.8 Total Bilirubin AST Alkaline Phosphatase C-Reactive Protein Total Protein Albumin Urine Color YELLOW Urine Appearance SLIGHTLY-CLOUDY Urine pH 7.0 Ur Specific [place] 1.016 Urine Protein 30 H Urine Glucose (UA) NEGATIVE Urine Ketones NEGATIVE Urine Blood SMALL H Urine RBC (Auto) 61 Impressions: Chest X-Ray 06/06/20 17:15 IMPRESSION: NO ACUTE RADIOGRAPHIC FINDING IN THE CHEST. Thoracic Spine X-Ray 06/06/20 17:15 IMPRESSION: NO SIGNIFICANT RADIOGRAPHIC FINDING IN THE THORACIC SPINE. Head CT 06/06/20 17:27 IMPRESSION: NORMAL BRAIN CT WITHOUT CONTRAST. EVIDENCE OF ACUTE STROKE: NO. Lumbar Spine MRI 06/06/20 18:46 IMPRESSION: 1. Probable massive distention of the urinary bladder that is incompletely imaged, would recommend follow-up CT of the abdomen and pelvis to better evaluate. 2. Diffuse degenerative disc disease and facet arthropathy producing some levels of canal stenosis and foraminal narrowing as above. Abdomen/Pelvis CT 06/07/20 00:56 IMPRESSION: 1. Cholelithiasis with findings consistent with acute cholecystitis, recommend surgical consultation. 2. Massive urinary bladder distention with multiple bladder stones within apparent bladder diverticulum. Consider Du catheter placement. 3. Diverticulosis. 4. Mild prostate enlargement. 5. Likely approximate 70% stenosis in the right common iliac artery, please correlate with any right lower extremity symptoms and consider nonemergent vascular surgery consultation. Assessment and Plan - Diagnosis (1) Cholecystitis, acute with cholelithiasis Is this a current diagnosis for this admission?: Yes Plan: 06/[id number]-old male came with nonspecific symptoms found to have elevated WBC count and CT abdomen shows acute cholecystitis. Surgery was consulted the recommendation is patient need a cardiac clearance. EKG EKG shows right bundle branch block we do not have any previous EKGs. Echocardiogram request was made. Cardiology consult was requested. Dr. Monterroso is going to see the patient this evening. To continue IV Zosyn at this time blood cultures are pending. To give him a low-sodium diet to put him on DVT prophylaxis. GI prophylaxis initiated. (2) Leukocytosis Qualifiers: Leukocytosis type: unspecified Qualified Code(s): D72.829 - Elevated white blood cell count, unspecified Is this a current diagnosis for this admission?: Yes Plan: 06/07/2019-WBC count is 18,800. Started on IV Zosyn blood cultures are pending. Leukocytosis most likely secondary to acute cholecystitis. (3) Sepsis Is this a current diagnosis for this admission?: Yes Plan: 06/07/2019-patient came in with elevated WBC count, altered mental status. CT abdomen indicates acute cholecystitis. Blood cultures are pending. To continue IV Zosyn at this time. (4) EKG abnormalities Is this a current diagnosis for this admission?: Yes Plan: 06/07/2019-EKG shows right bundle jordan block. We do not have any previous EKGs to compare. As per surgery recommendations cardiology team consulted. Echocardiogram is pending. (5) Urinary retention Is this a current diagnosis for this admission?: Yes Plan: 06/07/2019-patient came in with distended bladder. CT scan shows enlarged prostate. Du's catheter was placed as per the nurses more than 2 L of urine is drained. Patient may need to see a urologist as an outpatient may be need to go home on Du's catheter. (6) PVD (peripheral vascular disease) Is this a current diagnosis for this admission?: No Plan: 06/07/2019-patient has history of peripheral vascular disease and CT scan suggestive of a 70% stenosis in the right common iliac artery. Patient is to follow-up with vascular surgeon as an outpatient. (7) HTN (hypertension) Is this a current diagnosis for this admission?: No Plan: 06/07/2019-patient has history of chronic essential hypertension blood pressure is 170/80 in the ER. To restart losartan, to place him on IV hydralazine 10 mg every 6 hours as needed for systolic blood pressure more than 170. (8) Obesity (BMI 30.0-34.9) Is this a current diagnosis for this admission?: No Plan: 06/07/2019-patient BMI of more than 31. Diet exercise weight loss lifestyle modifications discussed with the patient. - Time Anticipated Discharge Disposition: Home, Self Care Anticipated Discharge Timeframe: within 72 hours
[2020-06-07] MEDS ORDERED: MORPHINE SULFATE 10 MG/ML INJ IV PRN (08:45)
[2020-06-07] MEDS ORDERED: IPRATROPIUM/ALBUTEROL 0.5-2.5 MG/3 ML AMPUL NEB ONE (09:00)
[2020-06-07 09:03] LABS: URINE AMPHETAMINES SCREEN NEGATIVE; URINE BARBITURATES SCREEN NEGATIVE; URINE BENZODIAZEPINES SCREEN NEGATIVE; URINE COCAINE SCREEN NEGATIVE; URINE MARIJUANA (THC) SCREEN NEGATIVE; URINE METHADONE SCREEN NEGATIVE; URINE PHENCYCLIDINE SCREEN NEGATIVE
[2020-06-07] MEDS: ENOXAPARIN SODIUM INJ 40 MG/0.4 ML DISP.SYRIN SUBCUT SCH (09:23)
[2020-06-07] MEDS ORDERED: LORAZEPAM INJ 2 MG/1 ML VIAL IV PRN (10:15)
[2020-06-07] MEDS ORDERED: PIPERACILLIN/TAZOBACTAM 3.375 GM VIAL IV SCH (14:00)
[2020-06-07] MEDS: PIPERACILLIN SODIUM/TAZOBACTAM 3.375 GM in NORMAL SALINE 100 ML IV SCH ×2 (15:50→21:57)
[2020-06-07] MEDS: NORMAL SALINE 1000 ML 1,000 ML IV PRN (15:50)
[2020-06-07] MEDS: PANTOPRAZOLE SODIUM 40 MG TABLET.DR PO SCH (18:20)
--- NOTE | 2020-06-07 19:57 | XCELERA REPORT ---
[address] [address] Transthoracic Echocardiogram Report Name: LORETO GUERRERO Age: 75 yrs Gender: Male : 1945 Patient Status: Inpatient Patient Location: [address] [place], [place] [id number] Study Date: 06/07/2020 05:39 PM History: CHF Height: 72 in Weight: 229 lb BSA: 2.3 m2 Procedure: A complete two-dimensional transthoracic echocardiogram was performed (2D, M-mode, spectral and color flow Doppler). The study was technically limited with all images being suboptimal in quality. Reason For Study: chf Previous Evaluation: No previous studies were available. History: CHF. Ordering Physician: RONAL RAMIREZ Performed By: Myra Ghosh Interpretation Summary Left ventricular systolic function is normal. The Ejection Fraction estimate is 55-60% The right ventricle is normal in size and function. There is no mitral regurgitation noted. There is no aortic valve stenosis There is a trace amount of tricuspid regurgitation There is no pericardial effusion. MMode/2D Measurements & Calculations RVDd: 3.9 cm LVIDd: 5.0 cm FS: 38.7 % Ao root diam: 3.1 cm IVSd: 1.1 cm LVIDs: 3.1 cm EDV(Teich): 118.7 ml Ao root area: 7.6 cm2 LVPWd: 1.2 cm ESV(Teich): 37.0 ml LA dimension: 3.5 cm EF(Teich): 68.9 % Doppler Measurements & Calculations MV E max john: MV P1/2t max john: Ao V2 max: LV V1 max P.5 cm/sec 75.5 cm/sec 159.6 cm/sec 6.3 mmHg MV A max john: MV P1/2t: 59.7 msec Ao max PG: LV V1 max: 120.9 cm/sec MVA(P1/2t): 3.7 cm2 10.2 mmHg 125.4 cm/sec MV E/A: 0.62 MV dec slope: 370.5 cm/sec2 MV dec time: 0.17 sec PA V2 max: MV P1/2t-pr_phl: 121.4 cm/sec 59.7 msec PA max P.9 mmHg Left Ventricle The left ventricle is normal in size. There is mild to moderate concentric left ventricular hypertrophy. Left ventricular systolic function is normal. The Ejection Fraction estimate is 55-60%. Doppler measurements suggest impaired left ventricular relaxation, which is associated with grade I/IV or mild diastolic dysfunction. No regional wall motion abnormalities noted. Right Ventricle The right ventricle is normal in size and function. Atria The right atrium is normal. The left atrial size is normal. The interatrial septum is intact with no evidence for an atrial septal defect. There is no Doppler evidence for an interatrial shunt. Mitral Valve The mitral valve is grossly normal. There is no evidence of mitral valve prolapse. There is no mitral valve stenosis. There is no mitral regurgitation noted. Aortic Valve The aortic valve is trileaflet. The aortic valve is normal in structure and function. The aortic valve opens well. There is no aortic valve stenosis. No aortic regurgitation is present. Tricuspid Valve The tricuspid valve is not well visualized, but is grossly normal. There is no tricuspid stenosis. There is a trace amount of tricuspid regurgitation. Tricuspid regurgitation jet envelope not well defined to measure RV systolic pressure accurately. Pulmonic Valve The pulmonic valve is not well visualized. Great Vessels The aortic root is normal size. The inferior vena cava appeared normal and decreased > 50% with respiration (RAP 5-10 mmHg). Effusions There is no pericardial effusion. : RONAL RAMIREZ Anil
[2020-06-08 05:17] LABS: ABSOLUTE BASOPHILS # (AUTO) 0.1 10^3/uL (0.0-0.2); ABSOLUTE EOSINOPHILS # (AUTO) 0.1 10^3/uL (0.0-0.6); ABSOLUTE LYMPHOCYTES (AUTO) 1.6 10^3/uL (0.5-4.7); ABSOLUTE MONOCYTES (AUTO) 1.4 10^3/uL (0.1-1.4); ABSOLUTE NEUT (AUTO) 9.8 10^3/uL (1.7-8.2); BASOPHILS % (AUTO) 0.6 % (0-2); HEMATOCRIT 34.5 % (37.9-51.0); LYMPHOCYTES % (AUTO) 12.7 % (13-45); MEAN CORPUSCULAR HGB CONC 34.9 g/dL (32.0-36.0); MEAN CORPUSCULAR VOLUME 92 fl (80-97); MONOCYTES % (AUTO) 10.5 % (3-13); PLATELET COUNT 155 10^3/uL (150-450); RED BLOOD COUNT 3.76 10^6/uL (4.35-5.55); SEGMENTED NEUTROPHILS % (AUTO) 75.2 % (42-78); TOTAL CELLS COUNTED % (AUTO) 100 %
[2020-06-08 05:57] LABS: ALBUMIN 3.1 g/dL (3.5-5.0); ALKALINE PHOSPHATASE 79 U/L (38-126); ANION GAP 8 (5-19); ASPARTATE AMINO TRANSFERASE 32 U/L (17-59); BILIRUBIN,DIRECT 0.2 mg/dL (0.0-0.4); BILIRUBIN,TOTAL 0.7 mg/dL (0.2-1.3); BLOOD UREA NITROGEN 15 mg/dL (7-20); CALCIUM 8.6 mg/dL (8.4-10.2); CARBON DIOXIDE 24 mmol/L (22-30); CHLORIDE 105 mmol/L (98-107); CHOLESTEROL 93.98 mg/dL (0-200); GLUCOSE 102 mg/dL (75-110); POTASSIUM 3.8 mmol/L (3.6-5.0); TOTAL PROTEIN 5.9 g/dL (6.3-8.2); TRIGLYCERIDES 65 mg/dL (<150)
[2020-06-08 06:08] LABS: DIRECT LDL 43 mg/dL (<100)
[2020-06-08] MEDS: PIPERACILLIN SODIUM/TAZOBACTAM 3.375 GM in NORMAL SALINE 100 ML IV SCH ×3 (07:27→22:13)
[2020-06-08] MEDS: NORMAL SALINE 1000 ML 1,000 ML IV PRN (07:27)
[2020-06-08] MEDS: PANTOPRAZOLE SODIUM 40 MG TABLET.DR PO SCH ×2 (07:27→18:31)
[2020-06-08] MEDS ORDERED: GLUCAGON,HUMAN RECOMB 1 MG INJ SUBCUT PRN (08:29)
[2020-06-08] MEDS ORDERED: DEXTROSE 50%-WATER 25 GM/50 ML DISP.SYRIN IV PRN ×2 (08:29)
[2020-06-08] MEDS ORDERED: DEXTROSE 40% GEL 15 GM TUBE PO PRN ×2 (08:29)
--- NOTE | 2020-06-08 09:17 | Progress Note ---
Provider Note Provider Note: CARDIOLOGY NOTE ACTIVE PROBLEMS 1. Systemic hypertension 2. Nicotine dependence 3. Peripheral vascular disease 4. RBBB Patient was admitted to the hospital on June 07, 2020 with a presentation suggestive of acute cholecystitis. This is also confirmed on imaging study. Th ere are plans for surgery for this condition. He is also noted to have massive urinary retention. Since admission to the hospital the patient has been started on intravenous antibiotics. Cardiac data Twelve-lead EKG 06/06/2020 1715. Independently viewed by me. Sinus tachycardia 114 bpm, right bundle branch block. QTC is 474 ms Transthoracic echocardiogram on 06/07/2020 Left atrial ejection fraction is normal and is estimated at 55 to 60% RV is normal in size and function There is no mitral regurgitation There is no aortic stenosis There is trace tricuspid regurgitation There is no clear effusion LAB Serum creatinine is 0.98 proBNP 674 White blood cell count is 18.8 and is down to 13 Platelet count 155 Hemoglobin 12 Hematocrit 34.5 CXR 06/06/2020 Negative for any acute finding This patient's presentation is suggestive of acute cholecystitis and there are plans for surgery for this condition. Although risk factors for coronary artery disease exist in this patient, given acute infection and surgical condition being present should proceed to surgery without further risk stratification. His EKG shows conduction disease in the form of right bundle branch block but there is no evidence of myocardial ischemia. His transthoracic echocardiogram shows preserved ejection fraction and no significant valve lesion and there is no significant wall motion abnormalities. Impression 1. Acute cholecystitis 2. Peripheral vascular disease 3. Systemic hypertension 4. Nicotine dependence 5. Right bundle branch block Recommendation Acceptable risk given surgical indication. Increased risk on account of age, No CHF(LVEF preserved), no ischemia on EKG, Cr WNL Further cardiac work-up or risk stratification will not minimize or mitigate the risk for the planned surgical procedure. Continue antihypertensives
[2020-06-08] MEDS: ENOXAPARIN SODIUM INJ 40 MG/0.4 ML DISP.SYRIN SUBCUT SCH (10:57)
[2020-06-08] MEDS ORDERED: FENTANYL CITRATE INJ/PF 100 MCG/2 ML AMPUL ONE (13:18)
[2020-06-08] MEDS ORDERED: PROPOFOL INJ 200 MG/20 ML VIAL IV ONE (13:19)
[2020-06-08] MEDS ORDERED: DEXAMETHASONE SOD PHOSPHATE INJ 4 MG/1 ML VIAL ONE (13:19)
[2020-06-08] MEDS ORDERED: MIDAZOLAM 2 MG/2 ML INJ ONE (13:19)
[2020-06-08] MEDS ORDERED: ONDANSETRON HCL INJ/PF 4 MG/2 ML SDV ONE (13:19)
[2020-06-08] MEDS ORDERED: METOPROLOL TARTRATE PF/INJ 5 MG/5 ML SDV IV ONE (14:14)
[2020-06-08] MEDS ORDERED: FENTANYL CITRATE INJ/PF 100 MCG/2 ML AMPUL IV PRN ×3 (14:21)
[2020-06-08] MEDS ORDERED: MORPHINE SULFATE 10 MG/ML INJ IV PRN (14:21)
[2020-06-08] MEDS ORDERED: OXYCODONE-ACETAMINOPHEN 5-325 MG TABLET PO PRN ×2 (14:21)
[2020-06-08] MEDS ORDERED: MEPERIDINE HCL/PF INJ 25 MG/1 ML DISP.SYRIN IV PRN (14:21)
[2020-06-08] MEDS ORDERED: DIPHENHYDRAMINE HCL 50 MG/ML VIAL IV PRN (14:21)
[2020-06-08] MEDS ORDERED: PROMETHAZINE HCL INJ 25 MG/1 ML VIAL IV PRN ×2 (14:21)
[2020-06-08] MEDS ORDERED: ONDANSETRON HCL INJ/PF 4 MG/2 ML SDV IV PRN (14:21)
[2020-06-08] MEDS: BUPIVACAINE INJ/PF LIPOSOME/PF 266 MG/20 ML SDV ONE ×2 (14:24→14:50)
--- NOTE | 2020-06-08 15:01 | Operative Report ---
Nonrecallable Operative Report DATE OF SURGERY: 06/08/20 PREOPERATIVE DIAGNOSIS: Acute cholecystitis POSTOPERATIVE DIAGNOSIS: Same OPERATION: Laparoscopic cholecystectomy SURGEON: ROSETTA FRANCO ANESTHESIA: GA TISSUE REMOVED OR ALTERED: Gallbladder COMPLICATIONS: None ESTIMATED BLOOD LOSS: 75 cc INTRAOPERATIVE FINDINGS: Acute gangrenous cholecystitis PROCEDURE: After obtaining informed consent, the patient was taken to the operating room. General Anesthesia was induced; the arms were extended, and the abdomen was exposed, and prepped and draped in a sterile fashion. Instrumentation was set up for laparoscopic cholecystectomy. Surgical plan and surgical timeout were conducted. A vertical incision was made above the umbilicus, and a verres needle was inserted uneventfully into the peritoneal cavity. Pneumoperitoneum was established. The verres needle was removed and a 10 mm trocar was inserted and a 10 mm laparoscope was inserted. Visualization of the peritoneal cavity confirmed safe uneventful entry. Under direct visualization 3 additional 5 mm ports were established, one in the subxiphoid position and second in the subcostal position. Visualization of the hepatobiliary anatomy revealed no anatomic variations. A grasper was placed on the fundus of the gallbladder and the gallbladder is elevated over the right surface of the liver; a second grasper was used to grasp the infundibulum of the gallbladder. The neck of the gallbladder and junction with the cystic duct was dissected out. The Cystic artery was in its usual location medial and cephalad to the cystic duct. The cystic artery was surrounded with a right angle clamp, clipped twice proximally and divided with laparoscopic scissors. We now opened the triangle of Calot by dividing the peritoneal reflection on both the medial and lateral sides of the cystic duct infundibular junction. The critical view was obtained. We now milked the cystic duct of any possible stones, clipped the cystic duct approximately 2 times once distally and divided with scissors. The gallbladder was now removed from the undersurface of the liver using hook cautery dissection. Graspers were repositioned and the gallbladder was removed uneventfully from the abdominal cavity through the super umbilical port site incision. The specimen was examined, then passed off to pathology for permanent analysis. We returned to the peritoneal cavity check for bleeding, and evidence of bile leak, and there was none. We Confirmed satisfactory placement of clips on cystic duct and cystic artery were secured . At this point we felt the operation was complete. The subcutaneous tissue was then anesthetized with quarter percent Marcaine Sponge and needle counts are correct. All ports removed under direct visualization pneumoperitoneum evacuated, and 5 mm port wounds closed with 3-0 Vicryl suture, benzoin and Steri-Strips. The patient was extubated, and taken to the recovery room in stable condition.
[2020-06-08] MEDS ORDERED: HYDROMORPHONE HCL INJ/PF 2 MG/ML AMPULE ONE (15:13)
[2020-06-08 17:18] LABS: HEMATOCRIT 35.6 % (37.9-51.0); HEMOGLOBIN 12.5 g/dL (13.5-17.0); MEAN CORPUSCULAR HEMOGLOBIN 32.4 pg (27.0-33.4); MEAN CORPUSCULAR HGB CONC 35.2 g/dL (32.0-36.0); MEAN CORPUSCULAR VOLUME 92 fl (80-97); PLATELET COUNT 169 10^3/uL (150-450); RED BLOOD COUNT 3.87 10^6/uL (4.35-5.55); WHITE BLOOD COUNT 10.7 10^3/uL (4.0-10.5)
[2020-06-08 17:28] LABS: ANION GAP 6 (5-19); BLOOD UREA NITROGEN 13 mg/dL (7-20); CALCIUM 8.4 mg/dL (8.4-10.2); CARBON DIOXIDE 24 mmol/L (22-30); CHLORIDE 106 mmol/L (98-107); GLUCOSE 125 mg/dL (75-110); POTASSIUM 4.3 mmol/L (3.6-5.0)
[2020-06-08 17:40] LABS: ABSOLUTE LYMPHOCYTES# (MANUAL) 0.9 10^3/uL (0.5-4.7); ABSOLUTE MONOCYTES # (MANUAL) 0.5 10^3/uL (0.1-1.4); BASOPHILS % (MANUAL) 0 % (0-2); EOSINOPHILS % (MANUAL) 2 % (0-6); LYMPHOCYTES % (MANUAL) 8 % (13-45); MONOCYTES % (MANUAL) 5 % (3-13); SEGMENTED NEUTROPHILS % (MAN) 85 % (42-78); TOTAL CELLS COUNTED 100
[2020-06-08 17:41] LABS: ANISOCYTOSIS SLIGHT
[2020-06-08 17:42] LABS: PLATELET COMMENT ADEQUATE
--- NOTE | 2020-06-08 19:28 | PDOC PROGRESS REPORT ---
Subjective Date:: 06/08/20 Subjective:: LORETO GUERRERO is a 75 year old male with history of COPD, hypertension, chronic smoker, severe peripheral vascular disease, chronic back pain who was admitted 06/07/19 for acute cholecystitis with cholelithiasis. Patient was seen on morning rounds. He is found resting in bed, comfortably, on room air. He was sleeping but woke easily when I said his name. He tells me that his abdominal discomfort is well controlled at present. He has slight nausea but no vomiting. Wishes to go back to sleep. He has no other questions or concerns at this time. He does deny fever, chest pain, palpitations, dyspnea. No concerns per nursing. Reason For Visit: ACUTE CHOLECYSTITIS Physical Exam Vital Signs: Temp Pulse Resp BP Pulse Ox 98.1 F 109 H 19 152/62 H 98 06/08/20 17:17 06/08/20 17:17 06/08/20 17:17 06/08/20 17:17 06/08/20 17:17 Intake & Output 06/07/20 06/08/20 06/09/20 06:59 06:59 06:59 Intake Total 3120 1240 2200 Output Total 3225 1950 Balance 3120 -1985 250 Weight 104.1 kg 104.1 kg General appearance: PRESENT: no acute distress, obese, well-developed, well- nourished Head exam: PRESENT: atraumatic, normocephalic Eye exam: PRESENT: conjunctiva pink, EOMI, PERRLA. ABSENT: scleral icterus Mouth exam: PRESENT: moist, tongue midline Teeth exam: PRESENT: poor dentation Respiratory exam: PRESENT: clear to auscultation sun, symmetrical, unlabored, other - room air. ABSENT: rales, rhonchi, wheezes Cardiovascular exam: PRESENT: RRR. ABSENT: diastolic murmur, rubs, systolic murmur Pulses: PRESENT: normal dorsalis pedis pul Vascular exam: PRESENT: normal capillary refill GI/Abdominal exam: PRESENT: normal bowel sounds, soft, tenderness. ABSENT: distended, guarding, mass, organolmegaly, rebound Rectal exam: PRESENT: deferred Extremities exam: PRESENT: full ROM. ABSENT: calf tenderness, clubbing, pedal edema Neurological exam: PRESENT: alert, awake, oriented to person, oriented to place, oriented to time, oriented to situation, CN II-XII grossly intact. ABSENT: motor sensory deficit Psychiatric exam: PRESENT: appropriate affect, normal mood. ABSENT: homicidal ideation, suicidal ideation Skin exam: PRESENT: dry, intact, warm. ABSENT: cyanosis, rash Results Laboratory Results: 06/08/20 16:35 06/08/20 16:35 06/08/20 06/08/20 06/08/20 04:56 04:56 04:56 WBC 13.0 H RBC 3.76 L Hgb 12.0 L Hct 34.5 L MCV 92 MCH 32.0 MCHC 34.9 RDW 14.0 Plt Count 155 Seg Neutrophils % 75.2 Sodium 136.9 L Potassium 3.8 Chloride 105 Carbon Dioxide 24 Anion Gap 8 BUN 15 Creatinine 0.98 Est GFR ( Amer) > 60 Glucose 102 Calcium 8.6 Total Bilirubin 0.7 AST 32 Alkaline Phosphatase 79 Total Protein 5.9 L Albumin 3.1 L Triglycerides 65 Cholesterol 93.98 LDL Cholesterol Direct 43 VLDL Cholesterol 13.0 HDL Cholesterol 31 L TSH 2.08 06/08/20 06/08/20 16:35 16:35 WBC 10.7 H RBC 3.87 L Hgb 12.5 L Hct 35.6 L MCV 92 MCH 32.4 MCHC 35.2 RDW 14.0 Plt Count 169 Seg Neutrophils % Not Reportable Sodium 135.7 L Potassium 4.3 Chloride 106 Carbon Dioxide 24 Anion Gap 6 BUN 13 Creatinine 0.87 Est GFR ( Amer) > 60 Glucose 125 H Calcium 8.4 Total Bilirubin AST Alkaline Phosphatase Total Protein Albumin Triglycerides Cholesterol LDL Cholesterol Direct VLDL Cholesterol HDL Cholesterol TSH 06/08/20 04:56 NT-Pro-B Natriuret Pep 674 H Impressions: Chest X-Ray 06/06/20 17:15 IMPRESSION: NO ACUTE RADIOGRAPHIC FINDING IN THE CHEST. Thoracic Spine X-Ray 06/06/20 17:15 IMPRESSION: NO SIGNIFICANT RADIOGRAPHIC FINDING IN THE THORACIC SPINE. Head CT 06/06/20 17:27 IMPRESSION: NORMAL BRAIN CT WITHOUT CONTRAST. EVIDENCE OF ACUTE STROKE: NO. Lumbar Spine MRI 06/06/20 18:46 IMPRESSION: 1. Probable massive distention of the urinary bladder that is incompletely imaged, would recommend follow-up CT of the abdomen and pelvis to better evaluate. 2. Diffuse degenerative disc disease and facet arthropathy producing some levels of canal stenosis and foraminal narrowing as above. Abdomen/Pelvis CT 06/07/20 00:56 IMPRESSION: 1. Cholelithiasis with findings consistent with acute cholecystitis, recommend surgical consultation. 2. Massive urinary bladder distention with multiple bladder stones within apparent bladder diverticulum. Consider Du catheter placement. 3. Diverticulosis. 4. Mild prostate enlargement. 5. Likely approximate 70% stenosis in the right common iliac artery, please correlate with any right lower extremity symptoms and consider nonemergent vascular surgery consultation. Assessment and Plan - Diagnosis (1) Cholecystitis, acute with cholelithiasis Is this a current diagnosis for this admission?: Yes Plan: 75-year-old male came with nonspecific symptoms found to have elevated WBC count and CT abdomen shows acute cholecystitis. Surgery was consulted; plan for cholecystectomy. Cardiology consult; has cleared patient for surgery. To continue IV Zosyn IVF, analgesics and antiemetics. DVT prophylaxis. GI prophylaxis initiated. (2) HTN (hypertension) Is this a current diagnosis for this admission?: No Plan: Resume home dose metoprolol (3) Leukocytosis Qualifiers: Leukocytosis type: unspecified Qualified Code(s): D72.829 - Elevated white blood cell count, unspecified Is this a current diagnosis for this admission?: Yes Plan: Trending down WBC count is 18,800-> 10.7 Blood cultures pending. Continue on IV Zosyn follow CBC (4) PVD (peripheral vascular disease) Is this a current diagnosis for this admission?: No Plan: Patient has history of peripheral vascular disease and CT scan suggestive of a 70% stenosis in the right common iliac artery. Continue home dose Cilostazol and statin Patient is to follow-up with vascular surgeon as an outpatient. (5) Sepsis Is this a current diagnosis for this admission?: Yes Plan: Patient came in with elevated WBC count, altered mental status. CT abdomen indicates acute cholecystitis. Blood cultureshave no growth at 24 hours. To continue IV Zosyn at this time. (6) Urinary retention Is this a current diagnosis for this admission?: Yes Plan: Patient came in with distended bladder. CT scan shows enlarged prostate. Du's catheter was placed as per the nurses more than 2 L of urine is drained. Start Flomax Patient may need to see a urologist as an outpatient may be need to go home on Du's catheter. (7) Obesity (BMI 30.0-34.9) Is this a current diagnosis for this admission?: No Plan: BMI of more than 31. Diet exercise weight loss lifestyle modifications discussed with the patient. (8) EKG abnormalities Is this a current diagnosis for this admission?: Yes Plan: Cardiology consulted; has cleared patient for surgery - Time Time Spent with patient: 25-34 minutes Medications reviewed and adjusted accordingly: Yes Anticipated Discharge Disposition: Home, Self Care Anticipated Discharge Timeframe: within 48 hours
[2020-06-08] MEDS: ATORVASTATIN CALCIUM 10 MG TABLET PO SCH (22:13)
[2020-06-09] MEDS: LABETALOL HCL INJ 20 MG/4 ML DISP.SYRIN IV PRN ×3 (00:14→16:21)
[2020-06-09] MEDS: PIPERACILLIN SODIUM/TAZOBACTAM 3.375 GM in NORMAL SALINE 100 ML IV SCH ×3 (06:00→21:10)
[2020-06-09] MEDS: PANTOPRAZOLE SODIUM 40 MG TABLET.DR PO SCH ×2 (06:00→16:21)
[2020-06-09] MEDS ORDERED: (PENDING PHARMACY ID) (Umeclidinium Brm/Vilanterol Tr [Anoro Ellipta 62.5-25 Mcg Inh] 1 EA IH SCH (10:00)
[2020-06-09 10:11] LABS: ABSOLUTE BASOPHILS # (AUTO) 0.1 10^3/uL (0.0-0.2); ABSOLUTE LYMPHOCYTES (AUTO) 1.2 10^3/uL (0.5-4.7); ABSOLUTE MONOCYTES (AUTO) 1.3 10^3/uL (0.1-1.4); ABSOLUTE NEUT (AUTO) 14.2 10^3/uL (1.7-8.2); BASOPHILS % (AUTO) 0.6 % (0-2); HEMATOCRIT 34.1 % (37.9-51.0); HEMOGLOBIN 12.1 g/dL (13.5-17.0); LYMPHOCYTES % (AUTO) 7.1 % (13-45); MEAN CORPUSCULAR HEMOGLOBIN 32.6 pg (27.0-33.4); MEAN CORPUSCULAR HGB CONC 35.4 g/dL (32.0-36.0); MEAN CORPUSCULAR VOLUME 92 fl (80-97); MONOCYTES % (AUTO) 7.6 % (3-13); PLATELET COUNT 194 10^3/uL (150-450); RED CELL DISTRIBUTION WIDTH 13.6 % (11.5-14.0); SEGMENTED NEUTROPHILS % (AUTO) 84.7 % (42-78); TOTAL CELLS COUNTED % (AUTO) 100 %; WHITE BLOOD COUNT 16.8 10^3/uL (4.0-10.5)
--- NOTE | 2020-06-09 10:19 | PDOC PROGRESS REPORT ---
Subjective Date:: 06/09/20 Subjective:: Patient is status post laparoscopic cholecystectomy by Dr. Stark for acute ch olecystitis. He appears to have tolerated the procedure well. This morning his diet is being advanced and he is comfortable and smiling and is reading the newspaper. He does not report any chest pain or discomfort at all. Briefly my conversation he reports no cardiac issues at home either such as chest pain or exertional dyspnea. His blood pressure has been quite turbulent lately. He continues to smoke a pack of cigarettes daily. Reason For Visit: ACUTE CHOLECYSTITIS Physical Exam Vital Signs: Temp Pulse Resp BP Pulse Ox 98.1 F 87 20 173/78 H 94 06/09/20 07:38 06/09/20 07:38 06/09/20 07:38 06/09/20 07:38 06/09/20 07:38 Intake & Output 06/08/20 06/09/20 06/10/20 06:59 06:59 06:59 Intake Total 1240 3440 Output Total 3225 2650 Balance -1984 790 Weight 104.1 kg 101.6 kg General appearance: PRESENT: no acute distress, cooperative, well-developed, well-nourished Head exam: PRESENT: atraumatic, normocephalic Eye exam: PRESENT: conjunctiva pink, EOMI Mouth exam: PRESENT: moist Respiratory exam: PRESENT: decreased breath sounds, prolonged expiratory phas, symmetrical, unlabored Cardiovascular exam: PRESENT: RRR, +S1, +S2, other - Telemetry with sinus rhythm at 95 bpm Pulses: PRESENT: normal radial pulses GI/Abdominal exam: PRESENT: soft Rectal exam: PRESENT: deferred Neurological exam: PRESENT: alert, awake, oriented to person, oriented to place, oriented to time, oriented to situation, CN II-XII grossly intact Skin exam: PRESENT: dry, intact, normal color Results Laboratory Results: 06/08/20 06/08/20 16:35 16:35 WBC 10.7 H RBC 3.87 L Hgb 12.5 L Hct 35.6 L MCV 92 MCH 32.4 MCHC 35.2 RDW 14.0 Plt Count 169 Seg Neutrophils % Not Reportable Sodium 135.7 L Potassium 4.3 Chloride 106 Carbon Dioxide 24 Anion Gap 6 BUN 13 Creatinine 0.87 Est GFR ( Amer) > 60 Glucose 125 H Calcium 8.4 06/07/20 00:15 Clean Catch Midstream Urine Culture - Final 3,000 col/ml 06/08/20 04:56 NT-Pro-B Natriuret Pep 674 H EKG Comments: Transthoracic echocardiogram 06/07/2020 Left ventricle ejection fraction 55 to 60% RV is normal in size and function There is no mitral regurgitation There is no aortic valve stenosis There is trace tricuspid regurgitation There is no pericardial effusion Twelve-lead EKG 06/06/2020 1742. Independently viewed by me. Sinus tachycardia 114 bpm, right bundle branch block, borderline inferior Q waves Impressions: Chest X-Ray 06/06/20 17:15 IMPRESSION: NO ACUTE RADIOGRAPHIC FINDING IN THE CHEST. Thoracic Spine X-Ray 06/06/20 17:15 IMPRESSION: NO SIGNIFICANT RADIOGRAPHIC FINDING IN THE THORACIC SPINE. Head CT 06/06/20 17:27 IMPRESSION: NORMAL BRAIN CT WITHOUT CONTRAST. EVIDENCE OF ACUTE STROKE: NO. Lumbar Spine MRI 06/06/20 18:46 IMPRESSION: 1. Probable massive distention of the urinary bladder that is incompletely imaged, would recommend follow-up CT of the abdomen and pelvis to better evaluate. 2. Diffuse degenerative disc disease and facet arthropathy producing some levels of canal stenosis and foraminal narrowing as above. Abdomen/Pelvis CT 06/07/20 00:56 IMPRESSION: 1. Cholelithiasis with findings consistent with acute cholecystitis, recommend surgical consultation. 2. Massive urinary bladder distention with multiple bladder stones within apparent bladder diverticulum. Consider Du catheter placement. 3. Diverticulosis. 4. Mild prostate enlargement. 5. Likely approximate 70% stenosis in the right common iliac artery, please correlate with any right lower extremity symptoms and consider nonemergent vascular surgery consultation. Assessment & Plan - Diagnosis (1) Cholecystitis, acute with cholelithiasis Is this a current diagnosis for this admission?: Yes Plan: Status post cholecystectomy by surgery. His diet is being advanced. His symptoms have resolved. He tolerated the surgery well. (2) PVD (peripheral vascular disease) Is this a current diagnosis for this admission?: Yes Plan: None peripheral vascular disease apparently with continued nicotine dependence Needs outpatient evaluation and follow-up Continue cilostazol 100 mg twice daily Needs to stop cigarettes Continue atorvastatin 10 mg daily (3) HTN (hypertension) Is this a current diagnosis for this admission?: Yes Plan: Continue losartan 25 mg daily Continue metoprolol succinate 50 mg daily
--- NOTE | 2020-06-09 10:24 | PDOC PROGRESS REPORT ---
Subjective Date:: 06/09/20 Subjective:: Feels well this morning tolerating a regular diet Reason For Visit: ACUTE CHOLECYSTITIS Physical Exam Vital Signs: Temp Pulse Resp BP Pulse Ox 98.1 F 87 20 173/78 H 94 06/09/20 07:38 06/09/20 07:38 06/09/20 07:38 06/09/20 07:38 06/09/20 07:38 Intake & Output 06/08/20 06/09/20 06/10/20 06:59 06:59 06:59 Intake Total 1240 3440 Output Total 3225 2650 -1984 790 Weight 104.1 kg 101.6 kg General appearance: PRESENT: no acute distress Head exam: PRESENT: normocephalic Eye exam: PRESENT: EOMI Ear exam: PRESENT: normal external ear exam Mouth exam: PRESENT: moist Neck exam: PRESENT: full ROM Respiratory exam: PRESENT: clear to auscultation sun Cardiovascular exam: PRESENT: RRR Pulses: PRESENT: normal radial pulses, normal femoral pulses Vascular exam: PRESENT: normal capillary refill Breast: PRESENT: Normal GI/Abdominal exam: PRESENT: soft, other - Steri-Strips in place wounds healing well Rectal exam: PRESENT: deferred Extremities exam: PRESENT: full ROM Musculoskeletal exam: PRESENT: full ROM Neurological exam: PRESENT: alert, awake, oriented to person, oriented to place Psychiatric exam: PRESENT: appropriate affect Skin exam: PRESENT: dry Results Laboratory Results: 06/08/20 06/08/20 16:35 16:35 WBC 10.7 H RBC 3.87 L Hgb 12.5 L Hct 35.6 L MCV 92 MCH 32.4 MCHC 35.2 RDW 14.0 Plt Count 169 Seg Neutrophils % Not Reportable Sodium 135.7 L Potassium 4.3 Chloride 106 Carbon Dioxide 24 Anion Gap 6 BUN 13 Creatinine 0.87 Est GFR ( Amer) > 60 Glucose 125 H Calcium 8.4 06/07/20 00:15 Clean Catch Midstream Urine Culture - Final 3,000 col/ml 06/08/20 04:56 NT-Pro-B Natriuret Pep 674 H Impressions: Chest X-Ray 06/06/20 17:15 IMPRESSION: NO ACUTE RADIOGRAPHIC FINDING IN THE CHEST. Thoracic Spine X-Ray 06/06/20 17:15 IMPRESSION: NO SIGNIFICANT RADIOGRAPHIC FINDING IN THE THORACIC SPINE. Head CT 06/06/20 17:27 IMPRESSION: NORMAL BRAIN CT WITHOUT CONTRAST. EVIDENCE OF ACUTE STROKE: NO. Lumbar Spine MRI 06/06/20 18:46 IMPRESSION: 1. Probable massive distention of the urinary bladder that is incompletely imaged, would recommend follow-up CT of the abdomen and pelvis to better evaluate. 2. Diffuse degenerative disc disease and facet arthropathy producing some levels of canal stenosis and foraminal narrowing as above. Abdomen/Pelvis CT 06/07/20 00:56 IMPRESSION: 1. Cholelithiasis with findings consistent with acute cholecystitis, recommend surgical consultation. 2. Massive urinary bladder distention with multiple bladder stones within apparent bladder diverticulum. Consider Du catheter placement. 3. Diverticulosis. 4. Mild prostate enlargement. 5. Likely approximate 70% stenosis in the right common iliac artery, please correlate with any right lower extremity symptoms and consider nonemergent vascular surgery consultation. Assessment & Plan - Time Anticipated Discharge Disposition: Home, Self Care Anticipated Discharge Timeframe: Unknown - Plan Summary Plan Summary: Impression status post laparoscopic cholecystectomy for gangrenous cholecystitis. This morning patient is doing well he is tolerating regular diet his wounds are clean and from a surgical standpoint he could be discharged home. Surgery will sign off at this point patient can be given a follow-up appointment for routine wound check in surgical clinic 7 to 10 days after discharge.
[2020-06-09 10:26] LABS: ANION GAP 8 (5-19); BLOOD UREA NITROGEN 13 mg/dL (7-20); CALCIUM 8.5 mg/dL (8.4-10.2); CARBON DIOXIDE 26 mmol/L (22-30); CHLORIDE 102 mmol/L (98-107); GLUCOSE 132 mg/dL (75-110); POTASSIUM 4.5 mmol/L (3.6-5.0)
[2020-06-09] MEDS: ENOXAPARIN SODIUM INJ 40 MG/0.4 ML DISP.SYRIN SUBCUT SCH (11:00)
[2020-06-09] MEDS: LOSARTAN POTASSIUM 25 MG TABLET PO SCH (11:02)
[2020-06-09] MEDS: SERTRALINE HCL 50 MG TABLET PO SCH (11:02)
[2020-06-09] MEDS: METOPROLOL SUCCINATE 50 MG TAB.SR.24H PO SCH (11:02)
[2020-06-09] MEDS: DOXAZOSIN MESYLATE 1 MG TABLET PO SCH (11:04)
[2020-06-09] MEDS: CILOSTAZOL 100 MG TABLET PO SCH ×2 (11:05→17:00)
[2020-06-09] MEDS: NORMAL SALINE 1000 ML 1,000 ML IV PRN ×2 (15:17)
[2020-06-09] MEDS ORDERED: CLONAZEPAM 1 MG TABLET PO PRN (20:19)
--- NOTE | 2020-06-09 20:24 | PDOC PROGRESS REPORT ---
Subjective Date:: 06/09/20 Subjective:: LORETO GUERRERO is a 75 year old male with history of COPD, hypertension, chronic smoker, severe peripheral vascular disease, chronic back pain who was admitted 06/07/19 for acute cholecystitis with cholelithiasis. Patient was seen on morning rounds. He is found resting in bed, comfortably, on oxygen 2 L/min via nasal cannula. He was sleeping but woke easily when I said his name. He tells me that his abdominal discomfort is well controlled at present. Tolerating regular diet well. Discusses anxiety at night, difficulty sleeping, and occasionally sleep walking. He has no other questions or concerns at this time. He does deny fever, chest pain, palpitations, dyspnea, nausea, vomiting, diarrhea. No concerns per nursing. Reason For Visit: ACUTE CHOLECYSTITIS Physical Exam Vital Signs: Temp Pulse Resp BP Pulse Ox 98.4 F 88 20 127/74 H 93 06/09/20 19:54 06/09/20 19:54 06/09/20 19:54 06/09/20 19:54 06/09/20 19:54 Intake & Output 06/08/20 06/09/20 06/10/20 06:59 06:59 06:59 Intake Total 1240 3440 2149 Output Total 3225 2650 1525 Balance -1985 790 624 Weight 104.1 kg 101.6 kg General appearance: PRESENT: no acute distress, cooperative, obese, well- developed, well-nourished Head exam: PRESENT: atraumatic, normocephalic Eye exam: PRESENT: conjunctiva pink, EOMI, PERRLA. ABSENT: scleral icterus Mouth exam: PRESENT: moist, tongue midline Respiratory exam: PRESENT: clear to auscultation sun, symmetrical, unlabored, other - nasal cannula. ABSENT: rales, rhonchi, wheezes Cardiovascular exam: PRESENT: RRR, +S1, +S2. ABSENT: diastolic murmur, rubs, systolic murmur Pulses: PRESENT: normal dorsalis pedis pul Vascular exam: PRESENT: normal capillary refill GI/Abdominal exam: PRESENT: normal bowel sounds, soft, tenderness - mild epigastric. ABSENT: distended, guarding, mass, organolmegaly, rebound Rectal exam: PRESENT: deferred Extremities exam: PRESENT: full ROM. ABSENT: calf tenderness, clubbing, pedal edema Neurological exam: PRESENT: alert, awake, oriented to person, oriented to place, oriented to time, oriented to situation, CN II-XII grossly intact. ABSENT: motor sensory deficit Psychiatric exam: PRESENT: appropriate affect, normal mood. ABSENT: homicidal ideation, suicidal ideation Skin exam: PRESENT: dry, intact, warm. ABSENT: cyanosis, rash Results Laboratory Results: 06/09/20 09:25 06/09/20 09:25 06/09/20 06/09/20 09:25 09:25 WBC 16.8 H RBC 3.70 L Hgb 12.1 L Hct 34.1 L MCV 92 MCH 32.6 MCHC 35.4 RDW 13.6 Plt Count 194 Seg Neutrophils % 84.7 H Sodium 136.0 L Potassium 4.5 Chloride 102 Carbon Dioxide 26 Anion Gap 8 BUN 13 Creatinine 0.81 Est GFR ( Amer) > 60 Glucose 132 H Calcium 8.5 06/07/20 00:15 Clean Catch Midstream Urine Culture - Final 3,000 col/ml 06/08/20 04:56 NT-Pro-B Natriuret Pep 674 H Impressions: Chest X-Ray 06/06/20 17:15 IMPRESSION: NO ACUTE RADIOGRAPHIC FINDING IN THE CHEST. Thoracic Spine X-Ray 06/06/20 17:15 IMPRESSION: NO SIGNIFICANT RADIOGRAPHIC FINDING IN THE THORACIC SPINE. Head CT 06/06/20 17:27 IMPRESSION: NORMAL BRAIN CT WITHOUT CONTRAST. EVIDENCE OF ACUTE STROKE: NO. Lumbar Spine MRI 06/06/20 18:46 IMPRESSION: 1. Probable massive distention of the urinary bladder that is incompletely imaged, would recommend follow-up CT of the abdomen and pelvis to better evaluate. 2. Diffuse degenerative disc disease and facet arthropathy producing some levels of canal stenosis and foraminal narrowing as above. Abdomen/Pelvis CT 06/07/20 00:56 IMPRESSION: 1. Cholelithiasis with findings consistent with acute cholecystitis, recommend surgical consultation. 2. Massive urinary bladder distention with multiple bladder stones within apparent bladder diverticulum. Consider Du catheter placement. 3. Diverticulosis. 4. Mild prostate enlargement. 5. Likely approximate 70% stenosis in the right common iliac artery, please correlate with any right lower extremity symptoms and consider nonemergent vascular surgery consultation. Assessment and Plan - Diagnosis (1) Cholecystitis, acute with cholelithiasis Is this a current diagnosis for this admission?: Yes Plan: 75-year-old male came with nonspecific symptoms found to have elevated WBC count and CT abdomen shows acute cholecystitis. Surgery was consulted; s/p karen patton. Have cleared patient for discharge and signed off. WBCs increased; continue IV Zosyn. Possible transition to oral abx and d/c home tomorrow. Analgesics and antiemetics. Diet has been advanced per surgery. DVT prophylaxis. GI prophylaxis initiated. (2) HTN (hypertension) Is this a current diagnosis for this admission?: Yes Plan: Contine home dose metoprolol Start Losartan (3) Leukocytosis Qualifiers: Leukocytosis type: unspecified Qualified Code(s): D72.829 - Elevated white blood cell count, unspecified Is this a current diagnosis for this admission?: Yes Plan: WBC count is 18,800-> 10.7-> 16 Blood cultures negative at 72 hrs Continue on IV Zosyn follow CBC (4) PVD (peripheral vascular disease) Is this a current diagnosis for this admission?: Yes Plan: Patient has history of peripheral vascular disease and CT scan suggestive of a 70% stenosis in the right common iliac artery. Continue home dose Cilostazol and statin Patient is to follow-up with vascular surgeon as an outpatient. (5) Sepsis Is this a current diagnosis for this admission?: Yes Plan: Patient came in with elevated WBC count, altered mental status. CT abdomen indicates acute cholecystitis. Blood cultureshave no growth at 24 hours. To continue IV Zosyn at this time. (6) Urinary retention Is this a current diagnosis for this admission?: Yes Plan: Patient came in with distended bladder. CT scan shows enlarged prostate. Fole y's catheter was placed as per the nurses more than 2 L of urine is drained. Start Flomax Patient may need to see a urologist as an outpatient may be need to go home on Du's catheter. (7) Obesity (BMI 30.0-34.9) Is this a current diagnosis for this admission?: No Plan: BMI of more than 31. Diet exercise weight loss lifestyle modifications discussed with the patient. (8) EKG abnormalities Is this a current diagnosis for this admission?: Yes Plan: Cardiology consulted; has cleared patient for surgery - Time Time Spent with patient: 25-34 minutes Medications reviewed and adjusted accordingly: Yes Anticipated Discharge Disposition: Home with Home Health Anticipated Discharge Timeframe: within 24 hours
[2020-06-09] MEDS: ATORVASTATIN CALCIUM 10 MG TABLET PO SCH (21:09)
[2020-06-10] MEDS: PIPERACILLIN SODIUM/TAZOBACTAM 3.375 GM in NORMAL SALINE 100 ML IV SCH ×3 (06:06→22:16)
[2020-06-10] MEDS: PANTOPRAZOLE SODIUM 40 MG TABLET.DR PO SCH ×2 (06:07→18:09)
--- NOTE | 2020-06-10 08:57 | PDOC PROGRESS REPORT ---
Subjective Reason For Visit: ACUTE CHOLECYSTITIS No complaints with diet Physical Exam Vital Signs: Temp Pulse Resp BP Pulse Ox 98.2 F 97 16 158/66 H 93 06/10/20 08:04 06/10/20 08:04 06/10/20 08:04 06/10/20 08:04 06/10/20 08:04 Intake & Output 06/09/20 06/10/20 06/11/20 06:59 06:59 06:59 Intake Total 3440 2149 Output Total 2650 7255 Balance 790 -326 Weight 101.6 kg 101.6 kg General appearance: PRESENT: other - On the fifth floor GI/Abdominal exam: PRESENT: other - Abdomen examined; Steri-Strips intact; no abdominal tenderness. Results Laboratory Results: 06/09/20 09:25 06/09/20 09:25 06/09/20 06/09/20 09:25 09:25 WBC 16.8 H RBC 3.70 L Hgb 12.1 L Hct 34.1 L MCV 92 MCH 32.6 MCHC 35.4 RDW 13.6 Plt Count 194 Seg Neutrophils % 84.7 H Sodium 136.0 L Potassium 4.5 Chloride 102 Carbon Dioxide 26 Anion Gap 8 BUN 13 Creatinine 0.81 Est GFR ( Amer) > 60 Glucose 132 H Calcium 8.5 06/07/20 00:15 Clean Catch Midstream Urine Culture - Final 3,000 col/ml 06/08/20 04:56 NT-Pro-B Natriuret Pep 674 H Impressions: Chest X-Ray 06/06/20 17:15 IMPRESSION: NO ACUTE RADIOGRAPHIC FINDING IN THE CHEST. Thoracic Spine X-Ray 06/06/20 17:15 IMPRESSION: NO SIGNIFICANT RADIOGRAPHIC FINDING IN THE THORACIC SPINE. Head CT 06/06/20 17:27 IMPRESSION: NORMAL BRAIN CT WITHOUT CONTRAST. EVIDENCE OF ACUTE STROKE: NO. Lumbar Spine MRI 06/06/20 18:46 IMPRESSION: 1. Probable massive distention of the urinary bladder that is incompletely imaged, would recommend follow-up CT of the abdomen and pelvis to better evaluate. 2. Diffuse degenerative disc disease and facet arthropathy producing some levels of canal stenosis and foraminal narrowing as above. Abdomen/Pelvis CT 06/07/20 00:56 IMPRESSION: 1. Cholelithiasis with findings consistent with acute cholecystitis, recommend surgical consultation. 2. Massive urinary bladder distention with multiple bladder stones within apparent bladder diverticulum. Consider Du catheter placement. 3. Diverticulosis. 4. Mild prostate enlargement. 5. Likely approximate 70% stenosis in the right common iliac artery, please correlate with any right lower extremity symptoms and consider nonemergent vascular surgery consultation. Assessment & Plan - Diagnosis (1) Sepsis Is this a current diagnosis for this admission?: Yes Plan: Impression: Patient 2 days status post laparoscopic cholecystectomy for acute cholecystitis doing well tolerating a diet Plan: 1. Patient can follow-up with [facility], Dr. Carlos Stark, in 1 to 2 weeks. 2. Patient may shower allow Steri-Strips to fall off 3. Patient may take Tylenol Motrin as needed pain 4. We will sign off; please reconsult if clinically indicated (2) Leukocytosis Qualifiers: Leukocytosis type: unspecified Qualified Code(s): D72.829 - Elevated white blood cell count, unspecified Is this a current diagnosis for this admission?: Yes (3) Atherosclerotic peripheral vascular disease Is this a current diagnosis for this admission?: Yes (4) Cholecystitis, acute with cholelithiasis Is this a current diagnosis for this admission?: Yes (5) Urinary retention Is this a current diagnosis for this admission?: Yes (6) Abuse of smoked substance Is this a current diagnosis for this admission?: Yes (7) Degenerative disc disease Is this a current diagnosis for this admission?: Yes (8) EKG abnormalities Is this a current diagnosis for this admission?: Yes - Time Anticipated Discharge Disposition: Home, Self Care Anticipated Discharge Timeframe: within 48 hours
[2020-06-10] MEDS: ENOXAPARIN SODIUM INJ 40 MG/0.4 ML DISP.SYRIN SUBCUT SCH (10:20)
[2020-06-10] MEDS: LOSARTAN POTASSIUM 25 MG TABLET PO SCH (10:20)
[2020-06-10] MEDS: DOXAZOSIN MESYLATE 1 MG TABLET PO SCH (10:21)
[2020-06-10] MEDS: CILOSTAZOL 100 MG TABLET PO SCH ×2 (10:21→18:09)
[2020-06-10] MEDS: SERTRALINE HCL 50 MG TABLET PO SCH (10:21)
[2020-06-10] MEDS: METOPROLOL SUCCINATE 50 MG TAB.SR.24H PO SCH (10:21)
--- NOTE | 2020-06-10 12:43 | CDI QUERY ---
CDI Query CDI Review: We are seeking further clarification of documentation to reflect the severity of illness of your patient. Per Operative Report: INTRAOPERATIVE FINDINGS: Acute gangrenous cholecystitis Per Surgical Progress Notes: Impression status post laparoscopic cholecystectomy for gangrenous cholecystitis. If you agree with the Surgeons diagnosis of gangrenous cholecystitis please include in the Progress Notes and carry through to the Discharge Summary. Thank you for your consideration. PATRICIA Purcell RN Clinical Stacker Physician Advisor [email or web address]
[2020-06-10 15:20] LABS: ABSOLUTE BASOPHILS # (AUTO) 0.1 10^3/uL (0.0-0.2); ABSOLUTE EOSINOPHILS # (AUTO) 0.3 10^3/uL (0.0-0.6); ABSOLUTE LYMPHOCYTES (AUTO) 1.8 10^3/uL (0.5-4.7); ABSOLUTE MONOCYTES (AUTO) 1.2 10^3/uL (0.1-1.4); ABSOLUTE NEUT (AUTO) 7.6 10^3/uL (1.7-8.2); BASOPHILS % (AUTO) 1.2 % (0-2); EOSINOPHILS % (AUTO) 2.6 % (0-6); HEMATOCRIT 34.4 % (37.9-51.0); LYMPHOCYTES % (AUTO) 16.3 % (13-45); MEAN CORPUSCULAR HEMOGLOBIN 32.3 pg (27.0-33.4); MEAN CORPUSCULAR VOLUME 93 fl (80-97); MONOCYTES % (AUTO) 11.2 % (3-13); PLATELET COUNT 209 10^3/uL (150-450); RED BLOOD COUNT 3.72 10^6/uL (4.35-5.55); RED CELL DISTRIBUTION WIDTH 13.8 % (11.5-14.0); SEGMENTED NEUTROPHILS % (AUTO) 68.7 % (42-78); TOTAL CELLS COUNTED % (AUTO) 100 %; WHITE BLOOD COUNT 11.1 10^3/uL (4.0-10.5)
[2020-06-10 15:41] LABS: ANION GAP 8 (5-19); BLOOD UREA NITROGEN 13 mg/dL (7-20); CARBON DIOXIDE 26 mmol/L (22-30); CHLORIDE 101 mmol/L (98-107); GLUCOSE 103 mg/dL (75-110); POTASSIUM 4.3 mmol/L (3.6-5.0)
[2020-06-10 17:02] LABS: APPEARANCE,URINE CLEAR; BILIRUBIN,URINE NEGATIVE (NEGATIVE); COLOR,URINE YELLOW; GLUCOSE, URINE NEGATIVE (NEGATIVE); KETONES,URINE NEGATIVE (NEGATIVE); LEUKOCYTE ESTERASE,URINE NEGATIVE (NEGATIVE); NITRITE,URINE NEGATIVE (NEGATIVE); PROTEIN,URINE 100 mg/dL (NEGATIVE); URINE SPECIFIC GRAVITY 1.011; UROBILINOGEN,URINE NEGATIVE mg/dL (<2.0)
--- NOTE | 2020-06-10 17:19 | PDOC PROGRESS REPORT ---
Subjective Date:: 06/10/20 Subjective:: 06/10/2020. No acute events overnight. Saw patient this morning, resting in bed in no apparent distress, denies any fever, chills, nausea, vomiting. P.o. tolerant. Has not had a bowel movement so far. Will have a significant leukocytosis. Reason For Visit: ACUTE CHOLECYSTITIS Physical Exam Vital Signs: Temp Pulse Resp BP Pulse Ox 98.3 F 89 18 176/67 H 91 L 06/10/20 15:51 06/10/20 15:51 06/10/20 15:51 06/10/20 15:51 06/10/20 15:51 Intake & Output 06/09/20 06/10/20 06/11/20 06:59 06:59 06:59 Intake Total 3440 2149 200 Output Total 2650 2475 700 Balance 790 -326 -500 Weight 101.6 kg 101.6 kg General appearance: PRESENT: no acute distress, obese, well-developed, well- nourished Head exam: PRESENT: atraumatic, normocephalic Respiratory exam: PRESENT: clear to auscultation sun. ABSENT: rales, rhonchi, wheezes Cardiovascular exam: PRESENT: RRR. ABSENT: diastolic murmur, rubs, systolic murmur GI/Abdominal exam: PRESENT: hypoactive bowel sounds, normal bowel sounds, soft. ABSENT: distended, guarding, mass, organolmegaly, rebound, tenderness Neurological exam: PRESENT: alert, awake, oriented to person, oriented to place, oriented to time, oriented to situation, CN II-XII grossly intact. ABSENT: motor sensory deficit Results Laboratory Results: 06/10/20 14:38 06/10/20 14:38 06/10/20 06/10/20 06/10/20 14:38 14:38 16:39 WBC 11.1 H RBC 3.72 L Hgb 12.0 L Hct 34.4 L MCV 93 MCH 32.3 MCHC 35.0 RDW 13.8 Plt Count 209 Seg Neutrophils % 68.7 Sodium 135.0 L Potassium 4.3 Chloride 101 Carbon Dioxide 26 Anion Gap 8 BUN 13 Creatinine 0.85 Est GFR ( Amer) > 60 Glucose 103 Calcium 9.0 Urine Color YELLOW Urine Appearance CLEAR Urine pH 8.0 Ur Specific [place] 1.011 Urine Protein 100 H Urine Glucose (UA) NEGATIVE Urine Ketones NEGATIVE Urine Blood MODERATE H Urine Nitrite NEGATIVE Ur Leukocyte Esterase NEGATIVE Urine WBC (Auto) 1 Urine RBC (Auto) >182 06/08/20 04:56 NT-Pro-B Natriuret Pep 674 H Impressions: Chest X-Ray 06/06/20 17:15 IMPRESSION: NO ACUTE RADIOGRAPHIC FINDING IN THE CHEST. Thoracic Spine X-Ray 06/06/20 17:15 IMPRESSION: NO SIGNIFICANT RADIOGRAPHIC FINDING IN THE THORACIC SPINE. Head CT 06/06/20 17:27 IMPRESSION: NORMAL BRAIN CT WITHOUT CONTRAST. EVIDENCE OF ACUTE STROKE: NO. Lumbar Spine MRI 06/06/20 18:46 IMPRESSION: 1. Probable massive distention of the urinary bladder that is incompletely imaged, would recommend follow-up CT of the abdomen and pelvis to better evaluate. 2. Diffuse degenerative disc disease and facet arthropathy producing some levels of canal stenosis and foraminal narrowing as above. Abdomen/Pelvis CT 06/07/20 00:56 IMPRESSION: 1. Cholelithiasis with findings consistent with acute cholecystitis, recommend surgical consultation. 2. Massive urinary bladder distention with multiple bladder stones within apparent bladder diverticulum. Consider Du catheter placement. 3. Diverticulosis. 4. Mild prostate enlargement. 5. Likely approximate 70% stenosis in the right common iliac artery, please correlate with any right lower extremity symptoms and consider nonemergent vascular surgery consultation. Assessment and Plan - Diagnosis (1) Cholecystitis, acute with cholelithiasis Is this a current diagnosis for this admission?: Yes Plan: Acute gangrenous cholecystitis as per intraoperative note. Presented with elevated WBC count and CT abdomen shows acute cholecystitis. Surgery was consulted; s/p lap abdi. Have cleared patient for discharge and signed off. WBCs increased; continue IV Zosyn. Possible transition to oral abx and d/c home tomorrow. Analgesics and antiemetics. Diet has been advanced per surgery. DVT prophylaxis. GI prophylaxis initiated. (2) EKG abnormalities Is this a current diagnosis for this admission?: Yes Plan: Cardiology consulted; has cleared patient for surgery (3) HTN (hypertension) Is this a current diagnosis for this admission?: Yes Plan: Contine home dose metoprolol Start Losartan (4) Leukocytosis Qualifiers: Leukocytosis type: unspecified Qualified Code(s): D72.829 - Elevated white blood cell count, unspecified Is this a current diagnosis for this admission?: Yes Plan: WBC count is 18,800-> 10.7-> 16 Blood cultures negative at 72 hrs Continue on IV Zosyn follow CBC (5) Obesity (BMI 30.0-34.9) Is this a current diagnosis for this admission?: No Plan: BMI of more than 31. Diet exercise weight loss lifestyle modifications discussed with the patient. (6) PVD (peripheral vascular disease) Is this a current diagnosis for this admission?: Yes Plan: Patient has history of peripheral vascular disease and CT scan suggestive of a 70% stenosis in the right common iliac artery. Continue home dose Cilostazol and statin Patient is to follow-up with vascular surgeon as an outpatient. (7) Sepsis Is this a current diagnosis for this admission?: Yes Plan: Patient came in with elevated WBC count, altered mental status. CT abdomen indicates acute cholecystitis. Blood cultureshave no growth at 24 hours. To continue IV Zosyn at this time. (8) Urinary retention Is this a current diagnosis for this admission?: Yes Plan: Patient came in with distended bladder. CT scan shows enlarged prostate. Du's catheter was placed as per the nurses more than 2 L of urine is drained. Start Flomax Patient may need to see a urologist as an outpatient may be need to go home on Du's catheter. - Time Time Spent with patient: 25-34 minutes Anticipated Discharge Disposition: Home with Home Health Anticipated Discharge Timeframe: within 72 hours
[2020-06-10] MEDS: ATORVASTATIN CALCIUM 10 MG TABLET PO SCH (22:16)
[2020-06-11] MEDS: PANTOPRAZOLE SODIUM 40 MG TABLET.DR PO SCH ×2 (06:01→17:11)
[2020-06-11] MEDS: PIPERACILLIN SODIUM/TAZOBACTAM 3.375 GM in NORMAL SALINE 100 ML IV SCH ×3 (06:01→22:12)
[2020-06-11 07:00] LABS: HEMATOCRIT 32.1 % (37.9-51.0); HEMOGLOBIN 11.5 g/dL (13.5-17.0); MEAN CORPUSCULAR HEMOGLOBIN 32.9 pg (27.0-33.4); MEAN CORPUSCULAR HGB CONC 35.8 g/dL (32.0-36.0); MEAN CORPUSCULAR VOLUME 92 fl (80-97); PLATELET COUNT 177 10^3/uL (150-450); RED CELL DISTRIBUTION WIDTH 13.5 % (11.5-14.0); WHITE BLOOD COUNT 9.9 10^3/uL (4.0-10.5)
[2020-06-11 07:37] LABS: ALBUMIN 2.9 g/dL (3.5-5.0); ALKALINE PHOSPHATASE 66 U/L (38-126); ANION GAP 9 (5-19); ASPARTATE AMINO TRANSFERASE 41 U/L (17-59); BILIRUBIN,DIRECT 0.3 mg/dL (0.0-0.4); BILIRUBIN,TOTAL 0.8 mg/dL (0.2-1.3); BLOOD UREA NITROGEN 15 mg/dL (7-20); CALCIUM 8.4 mg/dL (8.4-10.2); CARBON DIOXIDE 22 mmol/L (22-30); CHLORIDE 104 mmol/L (98-107); GLUCOSE 110 mg/dL (75-110); POTASSIUM 3.8 mmol/L (3.6-5.0); TOTAL PROTEIN 5.8 g/dL (6.3-8.2)
[2020-06-11] MEDS: ENOXAPARIN SODIUM INJ 40 MG/0.4 ML DISP.SYRIN SUBCUT SCH (09:14)
[2020-06-11] MEDS: SERTRALINE HCL 50 MG TABLET PO SCH (09:14)
[2020-06-11] MEDS: LOSARTAN POTASSIUM 25 MG TABLET PO SCH (09:14)
[2020-06-11] MEDS: DOXAZOSIN MESYLATE 1 MG TABLET PO SCH (09:14)
[2020-06-11] MEDS: METOPROLOL SUCCINATE 50 MG TAB.SR.24H PO SCH (09:14)
[2020-06-11] MEDS: CILOSTAZOL 100 MG TABLET PO SCH ×2 (09:14→17:11)
[2020-06-11] MEDS ORDERED: LISINOPRIL 5 MG TABLET PO SCH (13:00)
[2020-06-11] MEDS: TAMSULOSIN HCL 0.4 MG CAP.SR.24H PO SCH (13:26)
[2020-06-11] MEDS: FINASTERIDE 5 MG TABLET PO SCH (13:26)
[2020-06-11 14:38] LABS: ABSOLUTE BASOPHILS # (AUTO) 0.1 10^3/uL (0.0-0.2); ABSOLUTE EOSINOPHILS # (AUTO) 0.5 10^3/uL (0.0-0.6); ABSOLUTE LYMPHOCYTES (AUTO) 1.4 10^3/uL (0.5-4.7); ABSOLUTE MONOCYTES (AUTO) 1.1 10^3/uL (0.1-1.4); ABSOLUTE NEUT (AUTO) 7.2 10^3/uL (1.7-8.2); BASOPHILS % (AUTO) 0.9 % (0-2); EOSINOPHILS % (AUTO) 4.4 % (0-6); HEMATOCRIT 32.5 % (37.9-51.0); HEMOGLOBIN 11.7 g/dL (13.5-17.0); LYMPHOCYTES % (AUTO) 13.8 % (13-45); MEAN CORPUSCULAR HEMOGLOBIN 32.6 pg (27.0-33.4); MEAN CORPUSCULAR HGB CONC 35.8 g/dL (32.0-36.0); MEAN CORPUSCULAR VOLUME 91 fl (80-97); MONOCYTES % (AUTO) 10.8 % (3-13); PLATELET COUNT 195 10^3/uL (150-450); RED BLOOD COUNT 3.58 10^6/uL (4.35-5.55); RED CELL DISTRIBUTION WIDTH 13.9 % (11.5-14.0); SEGMENTED NEUTROPHILS % (AUTO) 70.1 % (42-78); TOTAL CELLS COUNTED % (AUTO) 100 %; WHITE BLOOD COUNT 10.2 10^3/uL (4.0-10.5)
[2020-06-11 14:54] LABS: ANION GAP 10 (5-19); BLOOD UREA NITROGEN 15 mg/dL (7-20); CALCIUM 8.4 mg/dL (8.4-10.2); CARBON DIOXIDE 22 mmol/L (22-30); CHLORIDE 103 mmol/L (98-107); GLUCOSE 133 mg/dL (75-110); POTASSIUM 3.8 mmol/L (3.6-5.0)
--- NOTE | 2020-06-11 16:15 | PDOC PROGRESS REPORT ---
Subjective Date:: 06/11/20 Subjective:: LORETO GUERRERO is a 75 year old male with history of COPD, hypertension, chronic smoker, severe peripheral vascular disease, chronic back pain who was admitted 06/07/19 for acute cholecystitis with cholelithiasis. 06/10/2020. No acute events overnight. Saw patient this morning, resting in bed in no apparent distress, denies any fever, chills, nausea, vomiting. P.o. tolerant. Has not had a bowel movement so far. Will have a significant leukocytosis. 06/11/2020. No acute events overnight. Patient comfortably sitting in chair does not appear to be in any apparent distress, is p.o. tolerant, abdominal pain is resolved, denies any nausea or vomiting, has not had a bowel movement. Denies any fever, shortness of breath, chest pain. Reason For Visit: ACUTE CHOLECYSTITIS Physical Exam Vital Signs: Temp Pulse Resp BP Pulse Ox 98.4 F 81 20 155/59 H 92 06/11/20 14:00 06/11/20 14:00 06/11/20 14:00 06/11/20 14:00 06/11/20 14:00 Intake & Output 06/10/20 06/11/20 06/12/20 06:59 06:59 06:59 Intake Total 2149 690 100 Output Total 2475 2175 350 Balance -326 -1485 -250 Weight 101.6 kg 94.6 kg General appearance: PRESENT: no acute distress, obese, well-developed, well- nourished Head exam: PRESENT: atraumatic, normocephalic Respiratory exam: PRESENT: clear to auscultation sun. ABSENT: rales, rhonchi, wheezes Cardiovascular exam: PRESENT: RRR. ABSENT: diastolic murmur, rubs, systolic murmur GI/Abdominal exam: PRESENT: normal bowel sounds, soft, other - Surgical wound clean, no tenderness, no sign of infection, no discharge.. ABSENT: distended, guarding, mass, organolmegaly, rebound, tenderness Extremities exam: PRESENT: full ROM. ABSENT: calf tenderness, clubbing, pedal edema Neurological exam: PRESENT: alert, awake, oriented to person, oriented to place, oriented to time, oriented to situation, CN II-XII grossly intact. ABSENT: motor sensory deficit Results Laboratory Results: 06/11/20 14:26 06/11/20 14:26 06/10/20 06/11/20 06/11/20 16:39 06:47 06:47 WBC 9.9 RBC 3.50 L Hgb 11.5 L Hct 32.1 L MCV 92 MCH 32.9 MCHC 35.8 RDW 13.5 Plt Count 177 Seg Neutrophils % Sodium 135.2 L Potassium 3.8 Chloride 104 Carbon Dioxide 22 Anion Gap 9 BUN 15 Creatinine 0.89 Est GFR ( Amer) > 60 Glucose 110 Calcium 8.4 Total Bilirubin 0.8 AST 41 Alkaline Phosphatase 66 Total Protein 5.8 L Albumin 2.9 L Urine Color YELLOW Urine Appearance CLEAR Urine pH 8.0 Ur Specific [place] 1.011 Urine Protein 100 H Urine Glucose (UA) NEGATIVE Urine Ketones NEGATIVE Urine Blood MODERATE H Urine Nitrite NEGATIVE Ur Leukocyte Esterase NEGATIVE Urine WBC (Auto) 1 Urine RBC (Auto) >182 06/11/20 06/11/20 14:26 14:26 WBC 10.2 RBC 3.58 L Hgb 11.7 L Hct 32.5 L MCV 91 MCH 32.6 MCHC 35.8 RDW 13.9 Plt Count 195 Seg Neutrophils % 70.1 Sodium 135.1 L Potassium 3.8 Chloride 103 Carbon Dioxide 22 Anion Gap 10 BUN 15 Creatinine 0.82 Est GFR ( Amer) > 60 Glucose 133 H Calcium 8.4 Total Bilirubin AST Alkaline Phosphatase Total Protein Albumin Urine Color Urine Appearance Urine pH Ur Specific [place] Urine Protein Urine Glucose (UA) Urine Ketones Urine Blood Urine Nitrite Ur Leukocyte Esterase Urine WBC (Auto) Urine RBC (Auto) 06/08/20 04:56 NT-Pro-B Natriuret Pep 674 H Impressions: Chest X-Ray 06/06/20 17:15 IMPRESSION: NO ACUTE RADIOGRAPHIC FINDING IN THE CHEST. Thoracic Spine X-Ray 06/06/20 17:15 IMPRESSION: NO SIGNIFICANT RADIOGRAPHIC FINDING IN THE THORACIC SPINE. Head CT 06/06/20 17:27 IMPRESSION: NORMAL BRAIN CT WITHOUT CONTRAST. EVIDENCE OF ACUTE STROKE: NO. Lumbar Spine MRI 06/06/20 18:46 IMPRESSION: 1. Probable massive distention of the urinary bladder that is incompletely imaged, would recommend follow-up CT of the abdomen and pelvis to better evaluate. 2. Diffuse degenerative disc disease and facet arthropathy producing some levels of canal stenosis and foraminal narrowing as above. Abdomen/Pelvis CT 06/07/20 00:56 IMPRESSION: 1. Cholelithiasis with findings consistent with acute cholecystitis, recommend surgical consultation. 2. Massive urinary bladder distention with multiple bladder stones within apparent bladder diverticulum. Consider Du catheter placement. 3. Diverticulosis. 4. Mild prostate enlargement. 5. Likely approximate 70% stenosis in the right common iliac artery, please correlate with any right lower extremity symptoms and consider nonemergent vascular surgery consultation. Assessment and Plan - Diagnosis (1) Cholecystitis, acute with cholelithiasis Is this a current diagnosis for this admission?: Yes Plan: Day 3 status post cholecystectomy. Presented with acute gangrenous cholecystitis as per intraoperative note. Presented with elevated WBC count and CT abdomen shows acute cholecystitis. WBC WNL. P.o. tolerant. Has not had a bowel movement. Continue Zosyn. Possible discharge home tomorrow on p.o. antibiotics. (2) EKG abnormalities Is this a current diagnosis for this admission?: Yes Plan: Cardiology consulted; has cleared patient for surgery (3) HTN (hypertension) Is this a current diagnosis for this admission?: Yes Plan: Normotensive. Euvolemic. Resume home meds. Adjust meds as needed. Outpatient PCP follow-up. (4) Leukocytosis Qualifiers: Leukocytosis type: unspecified Qualified Code(s): D72.829 - Elevated white blood cell count, unspecified Is this a current diagnosis for this admission?: Yes Plan: Resolved. As per #1. (5) Obesity (BMI 30.0-34.9) Is this a current diagnosis for this admission?: No Plan: BMI of more than 31. Diet exercise weight loss lifestyle modifications discussed with the patient. (6) PVD (peripheral vascular disease) Is this a current diagnosis for this admission?: Yes Plan: Patient has history of peripheral vascular disease and CT scan suggestive of a 70% stenosis in the right common iliac artery. Continue home dose Cilostazol and statin Patient is to follow-up with vascular surgeon as an outpatient. (7) Sepsis Is this a current diagnosis for this admission?: Yes Plan: Resolved. Due to #1. (8) Urinary retention Is this a current diagnosis for this admission?: Yes Plan: Denies any history of previous urinary retention. Endorses history of BPH. Likely due to acute illness. Presented with distended bladder. CT scan shows enlarged prostate on admission. Du's catheter in place. We will try to remove Du cath with bladder training. If patient is still retaining urine we will keep the indwelling Du cath and get follow-up with urology as outpatient. Continue finasteride. Continue Flomax. - Time Time Spent with patient: 35 or more minutes Anticipated Discharge Disposition: Home with Home Health Anticipated Discharge Timeframe: within 24 hours
[2020-06-11] MEDS ORDERED: LISINOPRIL 5 MG TABLET PO ONE (18:09)
[2020-06-11] MEDS: ATORVASTATIN CALCIUM 10 MG TABLET PO SCH (22:12)
[2020-06-12] MEDS: PANTOPRAZOLE SODIUM 40 MG TABLET.DR PO SCH ×2 (05:38→18:09)
[2020-06-12] MEDS: PIPERACILLIN SODIUM/TAZOBACTAM 3.375 GM in NORMAL SALINE 100 ML IV SCH ×3 (05:38→21:41)
[2020-06-12 05:55] LABS: HEMOGLOBIN 11.4 g/dL (13.5-17.0); MEAN CORPUSCULAR HEMOGLOBIN 32.4 pg (27.0-33.4); MEAN CORPUSCULAR HGB CONC 35.6 g/dL (32.0-36.0); MEAN CORPUSCULAR VOLUME 91 fl (80-97); PLATELET COUNT 210 10^3/uL (150-450); RED BLOOD COUNT 3.51 10^6/uL (4.35-5.55); RED CELL DISTRIBUTION WIDTH 13.7 % (11.5-14.0); WHITE BLOOD COUNT 10.7 10^3/uL (4.0-10.5)
[2020-06-12 06:21] LABS: ANION GAP 5 (5-19); BLOOD UREA NITROGEN 14 mg/dL (7-20); CALCIUM 8.5 mg/dL (8.4-10.2); CARBON DIOXIDE 25 mmol/L (22-30); CHLORIDE 103 mmol/L (98-107); GLUCOSE 125 mg/dL (75-110); POTASSIUM 3.9 mmol/L (3.6-5.0)
[2020-06-12 07:01] LABS: APPEARANCE,URINE CLEAR; BILIRUBIN,URINE NEGATIVE (NEGATIVE); COLOR,URINE STRAW; GLUCOSE, URINE NEGATIVE (NEGATIVE); KETONES,URINE NEGATIVE (NEGATIVE); PROTEIN,URINE 100 mg/dL (NEGATIVE); URINE SPECIFIC GRAVITY 1.006; UROBILINOGEN,URINE NEGATIVE mg/dL (<2.0)
[2020-06-12] MEDS ORDERED: LOSARTAN POTASSIUM 50 MG TABLET PO SCH (10:00)
[2020-06-12] MEDS ORDERED: LOSARTAN POTASSIUM 25 MG TABLET PO SCH (10:00)
[2020-06-12] MEDS: ENOXAPARIN SODIUM INJ 40 MG/0.4 ML DISP.SYRIN SUBCUT SCH (11:04)
[2020-06-12] MEDS: SODIUM CHLORIDE 1 GM TABLET PO SCH (11:05)
[2020-06-12] MEDS: SERTRALINE HCL 50 MG TABLET PO SCH (11:05)
[2020-06-12] MEDS: FINASTERIDE 5 MG TABLET PO SCH (11:05)
[2020-06-12] MEDS: TAMSULOSIN HCL 0.4 MG CAP.SR.24H PO SCH (11:05)
[2020-06-12] MEDS: METOPROLOL SUCCINATE 50 MG TAB.SR.24H PO SCH (11:05)
[2020-06-12] MEDS: CILOSTAZOL 100 MG TABLET PO SCH ×2 (11:06→18:09)
[2020-06-12 14:27] LABS: APPEARANCE,URINE SLIGHTLY-CLOUDY; BILIRUBIN,URINE NEGATIVE (NEGATIVE); COLOR,URINE YELLOW; GLUCOSE, URINE NEGATIVE (NEGATIVE); KETONES,URINE NEGATIVE (NEGATIVE); PROTEIN,URINE >=500 mg/dL (NEGATIVE); URINE SPECIFIC GRAVITY 1.017
[2020-06-12] MEDS: NORMAL SALINE 1000 ML 1,000 ML IV PRN ×2 (15:04→23:26)
--- NOTE | 2020-06-12 16:08 | PDOC PROGRESS REPORT ---
Subjective Date:: 06/12/20 Subjective:: LORETO GUERRERO is a 75 year old male with history of COPD, hypertension, chronic smoker, severe peripheral vascular disease, chronic back pain who was admitted 06/07/19 for acute cholecystitis with cholelithiasis. 06/10/2020. No acute events overnight. Saw patient this morning, resting in bed in no apparent distress, denies any fever, chills, nausea, vomiting. P.o. tolerant. Has not had a bowel movement so far. Will have a significant leukocytosis. 06/11/2020. No acute events overnight. Patient comfortably sitting in chair does not appear to be in any apparent distress, is p.o. tolerant, abdominal pain is resolved, denies any nausea or vomiting, has not had a bowel movement. Denies any fever, shortness of breath, chest pain. 06/12/2020. No acute events overnight. Denies any chest pain, nausea, vomiting, diarrhea, constipation. Had one bowel movement last night, p.o. tolerant, tolerating his food. Initially could be discharged home however patient has developed hematuria. Reason For Visit: ACUTE CHOLECYSTITIS Physical Exam Vital Signs: Temp Pulse Resp BP Pulse Ox 97.4 F 84 16 148/69 H 95 06/12/20 15:24 06/12/20 15:24 06/12/20 15:24 06/12/20 15:24 06/12/20 15:24 Intake & Output 06/11/20 06/12/20 06/13/20 06:59 06:59 06:59 Intake Total 690 580 240 Output Total 2172 1950 Balance -1485 -1370 240 Weight 94.6 kg 94.5 kg General appearance: PRESENT: no acute distress, well-developed, well-nourished Head exam: PRESENT: atraumatic, normocephalic Respiratory exam: PRESENT: clear to auscultation sun. ABSENT: rales, rhonchi, wheezes Cardiovascular exam: PRESENT: RRR. ABSENT: diastolic murmur, rubs, systolic murmur GI/Abdominal exam: PRESENT: normal bowel sounds, soft. ABSENT: distended, guard ing, mass, organolmegaly, rebound, tenderness Extremities exam: PRESENT: full ROM. ABSENT: calf tenderness, clubbing, pedal edema Neurological exam: PRESENT: alert, awake, oriented to person, oriented to place, oriented to time, oriented to situation, CN II-XII grossly intact. ABSENT: motor sensory deficit Results Laboratory Results: 06/12/20 05:42 06/12/20 05:42 06/12/20 06/12/20 06/12/20 05:42 05:42 06:15 WBC 10.7 H RBC 3.51 L Hgb 11.4 L Hct 32.0 L MCV 91 MCH 32.4 MCHC 35.6 RDW 13.7 Plt Count 210 Sodium 132.7 L Potassium 3.9 Chloride 103 Carbon Dioxide 25 Anion Gap 5 BUN 14 Creatinine 0.96 Est GFR ( Amer) > 60 Glucose 125 H Calcium 8.5 Urine Color STRAW Urine Appearance CLEAR Urine pH 7.0 Ur Specific [place] 1.006 Urine Protein 100 H Urine Glucose (UA) NEGATIVE Urine Ketones NEGATIVE Urine Blood MODERATE H Urine RBC (Auto) 8 06/12/20 13:10 WBC RBC Hgb Hct MCV MCH MCHC RDW Plt Count Sodium Potassium Chloride Carbon Dioxide Anion Gap BUN Creatinine Est GFR ( Amer) Glucose Calcium Urine Color YELLOW Urine Appearance SLIGHTLY-CLOUDY Urine pH 7.0 Ur Specific [place] 1.017 Urine Protein >=500 H Urine Glucose (UA) NEGATIVE Urine Ketones NEGATIVE Urine Blood LARGE H Urine RBC (Auto) >182 06/06/20 19:32 Blood Blood Culture - Final NO GROWTH IN 5 DAYS 06/06/20 17:50 Blood Blood Culture - Final NO GROWTH IN 5 DAYS 06/08/20 04:56 NT-Pro-B Natriuret Pep 674 H Impressions: Chest X-Ray 06/06/20 17:15 IMPRESSION: NO ACUTE RADIOGRAPHIC FINDING IN THE CHEST. Thoracic Spine X-Ray 06/06/20 17:15 IMPRESSION: NO SIGNIFICANT RADIOGRAPHIC FINDING IN THE THORACIC SPINE. Head CT 06/06/20 17:27 IMPRESSION: NORMAL BRAIN CT WITHOUT CONTRAST. EVIDENCE OF ACUTE STROKE: NO. Lumbar Spine MRI 06/06/20 18:46 IMPRESSION: 1. Probable massive distention of the urinary bladder that is incompletely imaged, would recommend follow-up CT of the abdomen and pelvis to better evaluate. 2. Diffuse degenerative disc disease and facet arthropathy producing some levels of canal stenosis and foraminal narrowing as above. Abdomen/Pelvis CT 06/07/20 00:56 IMPRESSION: 1. Cholelithiasis with findings consistent with acute cholecystitis, recommend surgical consultation. 2. Massive urinary bladder distention with multiple bladder stones within apparent bladder diverticulum. Consider Du catheter placement. 3. Diverticulosis. 4. Mild prostate enlargement. 5. Likely approximate 70% stenosis in the right common iliac artery, please correlate with any right lower extremity symptoms and consider nonemergent vascular surgery consultation. Assessment and Plan - Diagnosis (1) Cholecystitis, acute with cholelithiasis Is this a current diagnosis for this admission?: Yes Plan: Day 4 status post cholecystectomy. Presented with acute gangrenous cholecystitis as per intraoperative note. Presented with elevated WBC count and CT abdomen shows acute cholecystitis. Denies any nausea, abdominal pain. Tolerant. Having normal bowel movement. WBC trending up. Afebrile. Continue Zosyn. Possible discharge home tomorrow on p.o. antibiotics. (2) Urinary retention Is this a current diagnosis for this admission?: Yes Plan: Persistent urinary retention. Du catheter in place. Failed bladder training. 06/11/2020 attempt was made to remove Du cath however patient was retaining urine and Du cath had to be reinserted. Denies any history of previous urinary retention. Endorses history of BPH. Presented with distended bladder. Likely worsened due to acute illness. CT scan shows enlarged prostate on admission. Continue finasteride. Continue Flomax. Du care. Outpatient urology follow-up. Discharge home with home health and Du care. (3) Hematuria Qualifiers: Hematuria type: unspecified type Qualified Code(s): R31.9 - Hematuria, unspecified Is this a current diagnosis for this admission?: Yes Plan: Likely traumatic due to Du cath placement. Hold Lovenox. IV resuscitation guided by volume status. Monitor H&H. Bladder ultrasound to rule out any mass. (4) EKG abnormalities Is this a current diagnosis for this admission?: Yes Plan: Cardiology consulted; has cleared patient for surgery (5) HTN (hypertension) Is this a current diagnosis for this admission?: Yes Plan: Normotensive. Euvolemic. Resume home meds. Adjust meds as needed. Outpatient PCP follow-up. (6) Leukocytosis Qualifiers: Leukocytosis type: unspecified Qualified Code(s): D72.829 - Elevated white blood cell count, unspecified Is this a current diagnosis for this admission?: Yes Plan: Mild leukocytosis. No sign of acute infection. Afebrile. (7) Obesity (BMI 30.0-34.9) Is this a current diagnosis for this admission?: Yes Plan: BMI of more than 31. Diet exercise weight loss lifestyle modifications discussed with the patient. (8) PVD (peripheral vascular disease) Is this a current diagnosis for this admission?: Yes Plan: Patient has history of peripheral vascular disease and CT scan suggestive of a 70% stenosis in the right common iliac artery. Continue home dose Cilostazol and statin Patient is to follow-up with vascular surgeon as an outpatient. (9) Sepsis Is this a current diagnosis for this admission?: Yes Plan: Resolved. Due to #1. - Time Time Spent with patient: 35 or more minutes Anticipated Discharge Disposition: Home with Home Health Anticipated Discharge Timeframe: within 24 hours
--- NOTE | 2020-06-12 18:59 | RADIOLOGY REPORT (SQ) ---
EXAM DESCRIPTION: U/S RETROPERITON LTD IMAGES COMPLETED DATE/TIME: 06/12/2020 3:55 pm REASON FOR STUDY: Urinary retention. Bladder US COMPARISON: CT abdomen and pelvis 06/07/2020 TECHNIQUE: Limited bladder imaging. LIMITATIONS: Du catheter within the bladder which is decompressed FINDINGS: Du catheter is seen within the urinary bladder which is decompressed. Diffusely thicke sharda urinary bladder wall measuring up to 23 mm thickness. OTHER: Prostate is mildly enlarged measuring 3.9 x 3.9 x 5.2 cm. IMPRESSION: Decompressed urinary bladder with Du catheter within the bladder lumen. Diffusely th ickened bladder wall. Consider correlation with cystoscopy. Mild prostatic megaly. TECHNICAL DOCUMENTATION: JOB ID: [id number] 2010 [employer]- All Rights Reserved Reading location - IP/workstation name: [email or web address]
[2020-06-12] MEDS: ATORVASTATIN CALCIUM 10 MG TABLET PO SCH (21:42)
[2020-06-13 05:11] LABS: ABSOLUTE BASOPHILS # (AUTO) 0.1 10^3/uL (0.0-0.2); ABSOLUTE EOSINOPHILS # (AUTO) 0.5 10^3/uL (0.0-0.6); ABSOLUTE LYMPHOCYTES (AUTO) 1.5 10^3/uL (0.5-4.7); ABSOLUTE MONOCYTES (AUTO) 1.3 10^3/uL (0.1-1.4); ABSOLUTE NEUT (AUTO) 7.5 10^3/uL (1.7-8.2); BASOPHILS % (AUTO) 1.2 % (0-2); EOSINOPHILS % (AUTO) 4.9 % (0-6); HEMATOCRIT 33.3 % (37.9-51.0); HEMOGLOBIN 11.7 g/dL (13.5-17.0); LYMPHOCYTES % (AUTO) 13.9 % (13-45); MEAN CORPUSCULAR HEMOGLOBIN 32.4 pg (27.0-33.4); MEAN CORPUSCULAR HGB CONC 35.1 g/dL (32.0-36.0); MEAN CORPUSCULAR VOLUME 92 fl (80-97); MONOCYTES % (AUTO) 11.6 % (3-13); PLATELET COUNT 227 10^3/uL (150-450); RED BLOOD COUNT 3.62 10^6/uL (4.35-5.55); RED CELL DISTRIBUTION WIDTH 13.9 % (11.5-14.0); SEGMENTED NEUTROPHILS % (AUTO) 68.4 % (42-78); TOTAL CELLS COUNTED % (AUTO) 100 %; WHITE BLOOD COUNT 10.9 10^3/uL (4.0-10.5)
[2020-06-13] MEDS: PIPERACILLIN SODIUM/TAZOBACTAM 3.375 GM in NORMAL SALINE 100 ML IV SCH ×3 (05:16→21:54)
[2020-06-13] MEDS: PANTOPRAZOLE SODIUM 40 MG TABLET.DR PO SCH ×2 (05:16→18:12)
[2020-06-13 05:58] LABS: APPEARANCE,URINE CLEAR; BILIRUBIN,URINE NEGATIVE (NEGATIVE); COLOR,URINE YELLOW; GLUCOSE, URINE NEGATIVE (NEGATIVE); KETONES,URINE NEGATIVE (NEGATIVE); PROTEIN,URINE 100 mg/dL (NEGATIVE); URINE SPECIFIC GRAVITY 1.013
[2020-06-13] MEDS: NORMAL SALINE 1000 ML 1,000 ML IV PRN (07:40)
[2020-06-13] MEDS: SODIUM CHLORIDE 1 GM TABLET PO SCH (09:15)
[2020-06-13] MEDS: CILOSTAZOL 100 MG TABLET PO SCH ×2 (09:15→18:12)
[2020-06-13] MEDS: SERTRALINE HCL 50 MG TABLET PO SCH (09:16)
[2020-06-13] MEDS: FINASTERIDE 5 MG TABLET PO SCH (09:16)
[2020-06-13] MEDS: TAMSULOSIN HCL 0.4 MG CAP.SR.24H PO SCH (09:16)
[2020-06-13] MEDS: LOSARTAN POTASSIUM 50 MG TABLET PO SCH (09:16)
[2020-06-13] MEDS: METOPROLOL SUCCINATE 50 MG TAB.SR.24H PO SCH (09:16)
--- NOTE | 2020-06-13 12:54 | PDOC PROGRESS REPORT ---
Subjective Date:: 06/13/20 Subjective:: LORETO GUERRERO is a 75 year old male with history of COPD, hypertension, chronic smoker, severe peripheral vascular disease, chronic back pain who was admitted 06/07/19 for acute cholecystitis with cholelithiasis. 06/10/2020. No acute events overnight. Saw patient this morning, resting in bed in no apparent distress, denies any fever, chills, nausea, vomiting. P.o. tolerant. Has not had a bowel movement so far. Will have a significant leukocytosis. 06/11/2020. No acute events overnight. Patient comfortably sitting in chair does not appear to be in any apparent distress, is p.o. tolerant, abdominal pain is resolved, denies any nausea or vomiting, has not had a bowel movement. Denies any fever, shortness of breath, chest pain. 06/12/2020. No acute events overnight. Denies any chest pain, nausea, vomiting, diarrhea, constipation. Had one bowel movement last night, p.o. tolerant, tolerating his food. Initially could be discharged home however patient has developed hematuria. 06/13/2020. No acute events noted. Saw patient this morning, comfortably 7 apparent distress, denies any fever, chills, nausea, vomiting. P.o. tolerant, having normal bowel movement, able to ambulate in the hallways yesterday, unfortunately patient is still having hematuria but much improved since yesterday. Possible discharge home tomorrow. Reason For Visit: ACUTE CHOLECYSTITIS Physical Exam Vital Signs: Temp Pulse Resp BP Pulse Ox 97.7 F 86 19 182/77 H 96 06/13/20 11:08 06/13/20 11:08 06/13/20 11:08 06/13/20 11:08 06/13/20 11:08 Intake & Output 06/12/20 06/13/20 06/14/20 06:59 06:59 06:59 Intake Total 580 1780 1000 Output Total 1950 2350 Balance -1370 -570 1000 Weight 94.5 kg 94.4 kg General appearance: PRESENT: no acute distress, well-developed, well-nourished Head exam: PRESENT: atraumatic, normocephalic Respiratory exam: PRESENT: clear to auscultation sun. ABSENT: rales, rhonchi, wheezes GI/Abdominal exam: PRESENT: normal bowel sounds, soft. ABSENT: distended, guarding, mass, organolmegaly, rebound, tenderness Neurological exam: PRESENT: alert, awake, oriented to person, oriented to place, oriented to time, oriented to situation, CN II-XII grossly intact. ABSENT: motor sensory deficit Results Laboratory Results: 06/13/20 04:57 06/12/20 05:42 06/12/20 06/13/20 06/13/20 13:10 04:57 05:17 WBC 10.9 H RBC 3.62 L Hgb 11.7 L Hct 33.3 L MCV 92 MCH 32.4 MCHC 35.1 RDW 13.9 Plt Count 227 Seg Neutrophils % 68.4 Urine Color YELLOW YELLOW Urine Appearance SLIGHTLY-CLOUDY CLEAR Urine pH 7.0 6.0 Ur Specific [place] 1.017 1.013 Urine Protein >=500 H 100 H Urine Glucose (UA) NEGATIVE NEGATIVE Urine Ketones NEGATIVE NEGATIVE Urine Blood LARGE H MODERATE H Urine RBC (Auto) >182 85 06/08/20 04:56 NT-Pro-B Natriuret Pep 674 H Impressions: Chest X-Ray 06/06/20 17:15 IMPRESSION: NO ACUTE RADIOGRAPHIC FINDING IN THE CHEST. Thoracic Spine X-Ray 06/06/20 17:15 IMPRESSION: NO SIGNIFICANT RADIOGRAPHIC FINDING IN THE THORACIC SPINE. Head CT 06/06/20 17:27 IMPRESSION: NORMAL BRAIN CT WITHOUT CONTRAST. EVIDENCE OF ACUTE STROKE: NO. Lumbar Spine MRI 06/06/20 18:46 IMPRESSION: 1. Probable massive distention of the urinary bladder that is incompletely imaged, would recommend follow-up CT of the abdomen and pelvis to better evaluate. 2. Diffuse degenerative disc disease and facet arthropathy producing some levels of canal stenosis and foraminal narrowing as above. Abdomen/Pelvis CT 06/07/20 00:56 IMPRESSION: 1. Cholelithiasis with findings consistent with acute cholecystitis, recommend surgical consultation. 2. Massive urinary bladder distention with multiple bladder stones within apparent bladder diverticulum. Consider Du catheter placement. 3. Diverticulosis. 4. Mild prostate enlargement. 5. Likely approximate 70% stenosis in the right common iliac artery, please correlate with any right lower extremity symptoms and consider nonemergent vascular surgery consultation. Renal Ultrasound 06/12/20 00:00 IMPRESSION: Decompressed urinary bladder with Du catheter within the bladder lumen. Diffusely thickened bladder wall. Consider correlation with cystoscopy. Mild prostatic megaly. Assessment and Plan - Diagnosis (1) Cholecystitis, acute with cholelithiasis Is this a current diagnosis for this admission?: Yes Plan: Day 5 status post cholecystectomy. Presented with acute gangrenous cholecystitis as per intraoperative note. Presented with elevated WBC count and CT abdomen shows acute cholecystitis. Denies any nausea, abdominal pain. Tolerant. Having normal bowel movement. WBC trending up. Afebrile. Continue Zosyn. Possible discharge home tomorrow on p.o. antibiotics. (2) Urinary retention Is this a current diagnosis for this admission?: Yes Plan: Persistent urinary retention. Du catheter in place. Failed bladder training. 06/11/2020 attempt was made to remove Du cath however patient was retaining urine and Du cath had to be reinserted. Denies any history of previous urinary retention. Endorses history of BPH. Presented with distended bladder. Likely worsened due to acute illness. CT scan shows enlarged prostate on admission. Continue finasteride. Continue Flomax. Du care. Outpatient urology follow-up. Discharge home with home health and Du care. (3) Hematuria Qualifiers: Hematuria type: unspecified type Qualified Code(s): R31.9 - Hematuria, unspecified Is this a current diagnosis for this admission?: Yes Plan: Improving. H&H stable. Repeat UA positive for moderate hematuria. Likely traumatic due to Du cath placement. Hold Lovenox. IV resuscitation guided by volume status. Monitor H&H. Bladder ultrasound to rule out any mass. (4) EKG abnormalities Is this a current diagnosis for this admission?: Yes Plan: Cardiology consulted; has cleared patient for surgery (5) HTN (hypertension) Is this a current diagnosis for this admission?: Yes Plan: Normotensive. Euvolemic. Resume home meds. Adjust meds as needed. Outpatient PCP follow-up. (6) Leukocytosis Qualifiers: Leukocytosis type: unspecified Qualified Code(s): D72.829 - Elevated white blood cell count, unspecified Is this a current diagnosis for this admission?: Yes Plan: Mild leukocytosis. No sign of acute infection. Afebrile. (7) Obesity (BMI 30.0-34.9) Is this a current diagnosis for this admission?: Yes Plan: BMI of more than 31. Diet exercise weight loss lifestyle modifications discussed with the patient. (8) PVD (peripheral vascular disease) Is this a current diagnosis for this admission?: Yes Plan: Patient has history of peripheral vascular disease and CT scan suggestive of a 70% stenosis in the right common iliac artery. Continue home dose Cilostazol and statin Patient is to follow-up with vascular surgeon as an outpatient. (9) Sepsis Is this a current diagnosis for this admission?: Yes Plan: Resolved. Due to #1. - Time Time Spent with patient: 25-34 minutes Anticipated Discharge Disposition: Home with Home Health Anticipated Discharge Timeframe: within 24 hours
[2020-06-13] MEDS: LABETALOL HCL INJ 20 MG/4 ML DISP.SYRIN IV PRN (18:21)
[2020-06-13] MEDS: ATORVASTATIN CALCIUM 10 MG TABLET PO SCH (21:54)
[2020-06-14] MEDS: PIPERACILLIN SODIUM/TAZOBACTAM 3.375 GM in NORMAL SALINE 100 ML IV SCH (06:00)
[2020-06-14] MEDS: PANTOPRAZOLE SODIUM 40 MG TABLET.DR PO SCH ×2 (06:00→17:33)
[2020-06-14] MEDS: LOSARTAN POTASSIUM 50 MG TABLET PO SCH (10:17)
[2020-06-14] MEDS: FINASTERIDE 5 MG TABLET PO SCH (10:17)
[2020-06-14] MEDS: SERTRALINE HCL 50 MG TABLET PO SCH (10:18)
[2020-06-14] MEDS: TAMSULOSIN HCL 0.4 MG CAP.SR.24H PO SCH (10:18)
[2020-06-14] MEDS: SODIUM CHLORIDE 1 GM TABLET PO SCH (10:18)
[2020-06-14] MEDS: CILOSTAZOL 100 MG TABLET PO SCH ×2 (10:18→17:34)
[2020-06-14] MEDS: METOPROLOL SUCCINATE 50 MG TAB.SR.24H PO SCH ×3 (10:18→21:21)
[2020-06-14 11:08] LABS: APPEARANCE,URINE SLIGHTLY-CLOUDY; BILIRUBIN,URINE NEGATIVE (NEGATIVE); COLOR,URINE YELLOW; GLUCOSE, URINE NEGATIVE (NEGATIVE); KETONES,URINE NEGATIVE (NEGATIVE); PROTEIN,URINE 100 mg/dL (NEGATIVE); URINE SPECIFIC GRAVITY 1.017
--- NOTE | 2020-06-14 14:39 | PDOC PROGRESS REPORT ---
Subjective Date:: 06/14/20 Subjective:: LORETO GUERRERO is a 75 year old male with history of COPD, hypertension, chronic smoker, severe peripheral vascular disease, chronic back pain who was admitted 06/07/19 for acute cholecystitis with cholelithiasis. 06/10/2020. No acute events overnight. Saw patient this morning, resting in bed in no apparent distress, denies any fever, chills, nausea, vomiting. P.o. tolerant. Has not had a bowel movement so far. Will have a significant leukocytosis. 06/11/2020. No acute events overnight. Patient comfortably sitting in chair does not appear to be in any apparent distress, is p.o. tolerant, abdominal pain is resolved, denies any nausea or vomiting, has not had a bowel movement. Denies any fever, shortness of breath, chest pain. 06/12/2020. No acute events overnight. Denies any chest pain, nausea, vomiting, diarrhea, constipation. Had one bowel movement last night, p.o. tolerant, tolerating his food. Initially could be discharged home however patient has developed hematuria. 06/13/2020. No acute events noted. Saw patient this morning, comfortably 7 apparent distress, denies any fever, chills, nausea, vomiting. P.o. tolerant, having normal bowel movement, able to ambulate in the hallways yesterday, unfortunately patient is still having hematuria but much improved since yesterday. Possible discharge home tomorrow. 06/14/2020. No acute events noted. Patient complaining of not being able to get much sleep due to persistent chronic restless leg, otherwise denies any fever, chills, nausea, vomiting, ambulatory having normal bowel movement, unfortunately patient is still having hematuria on UA. Reason For Visit: ACUTE CHOLECYSTITIS Physical Exam Vital Signs: Temp Pulse Resp BP Pulse Ox 97.8 F 84 16 137/56 H 95 06/14/20 12:12 06/14/20 12:12 06/14/20 12:12 06/14/20 12:12 06/14/20 12:12 Intake & Output 06/13/20 06/14/20 06/15/20 06:59 06:59 06:59 Intake Total 1780 2650 480 Output Total 2350 3700 500 Balance -570 -1050 -20 Weight 94.4 kg 95.1 kg 95.1 kg General appearance: PRESENT: no acute distress, well-developed, well-nourished Head exam: PRESENT: atraumatic, normocephalic Respiratory exam: PRESENT: clear to auscultation sun. ABSENT: rales, rhonchi, wheezes Cardiovascular exam: PRESENT: RRR. ABSENT: diastolic murmur, rubs, systolic murmur GI/Abdominal exam: PRESENT: normal bowel sounds, soft. ABSENT: distended, guarding, mass, organolmegaly, rebound, tenderness Neurological exam: PRESENT: alert, awake, oriented to person, oriented to place, oriented to time, oriented to situation, CN II-XII grossly intact. ABSENT: motor sensory deficit Results Laboratory Results: 06/13/20 04:57 06/12/20 05:42 06/14/20 10:30 Urine Color YELLOW Urine Appearance SLIGHTLY-CLOUDY Urine pH 7.0 Ur Specific [place] 1.017 Urine Protein 100 H Urine Glucose (UA) NEGATIVE Urine Ketones NEGATIVE Urine Blood MODERATE H Urine RBC (Auto) 144 06/12/20 13:10 Catheterized Urine Urine Culture - Final NO GROWTH 2 DAYS 06/08/20 04:56 NT-Pro-B Natriuret Pep 674 H Impressions: Chest X-Ray 06/06/20 17:15 IMPRESSION: NO ACUTE RADIOGRAPHIC FINDING IN THE CHEST. Thoracic Spine X-Ray 06/06/20 17:15 IMPRESSION: NO SIGNIFICANT RADIOGRAPHIC FINDING IN THE THORACIC SPINE. Head CT 06/06/20 17:27 IMPRESSION: NORMAL BRAIN CT WITHOUT CONTRAST. EVIDENCE OF ACUTE STROKE: NO. Lumbar Spine MRI 06/06/20 18:46 IMPRESSION: 1. Probable massive distention of the urinary bladder that is incompletely imaged, would recommend follow-up CT of the abdomen and pelvis to better evaluate. 2. Diffuse degenerative disc disease and facet arthropathy producing some levels of canal stenosis and foraminal narrowing as above. Abdomen/Pelvis CT 06/07/20 00:56 IMPRESSION: 1. Cholelithiasis with findings consistent with acute cholecystitis, recommend surgical consultation. 2. Massive urinary bladder distention with multiple bladder stones within apparent bladder diverticulum. Consider Du catheter placement. 3. Diverticulosis. 4. Mild prostate enlargement. 5. Likely approximate 70% stenosis in the right common iliac artery, please correlate with any right lower extremity symptoms and consider nonemergent vascular surgery consultation. Renal Ultrasound 06/12/20 00:00 IMPRESSION: Decompressed urinary bladder with Du catheter within the bladder lumen. Diffusely thickened bladder wall. Consider correlation with cystoscopy. Mild prostatic megaly. Assessment and Plan - Diagnosis (1) Hematuria Qualifiers: Hematuria type: unspecified type Qualified Code(s): R31.9 - Hematuria, unspecified Is this a current diagnosis for this admission?: Yes Plan: Improving. H&H stable. Repeat UA positive for moderate hematuria. Likely traumatic due to Du cath placement. Hold Lovenox. IV resuscitation guided by volume status. Monitor H&H. Bladder ultrasound negative for any masses. (2) Cholecystitis, acute with cholelithiasis Is this a current diagnosis for this admission?: Yes Plan: Day 5 status post cholecystectomy. Presented with acute gangrenous cholecystitis as per intraoperative note. Presented with elevated WBC count and CT abdomen shows acute cholecystitis. Denies any nausea, abdominal pain. Tolerant. Having normal bowel movement. WBC trending up. Afebrile. Continue Zosyn. Possible discharge home tomorrow on p.o. antibiotics. (3) Urinary retention Is this a current diagnosis for this admission?: Yes Plan: Persistent urinary retention. Du catheter in place. Failed bladder training. 06/11/2020 attempt was made to remove Du cath however patient was retaining urine and Du cath had to be reinserted. Denies any history of previous urinary retention. Endorses history of BPH. Presented with distended bladder. Likely worsened due to acute illness. CT scan shows enlarged prostate on admission. Continue finasteride. Continue Flomax. Du care. Outpatient urology follow-up. Discharge home with home health and Du care. (4) EKG abnormalities Is this a current diagnosis for this admission?: Yes Plan: Cardiology consulted; has cleared patient for surgery (5) HTN (hypertension) Is this a current diagnosis for this admission?: Yes Plan: Normotensive. Euvolemic. Resume home meds. Adjust meds as needed. Outpatient PCP follow-up. (6) Leukocytosis Qualifiers: Leukocytosis type: unspecified Qualified Code(s): D72.829 - Elevated white blood cell count, unspecified Is this a current diagnosis for this admission?: Yes Plan: Mild leukocytosis. No sign of acute infection. Afebrile. (7) Obesity (BMI 30.0-34.9) Is this a current diagnosis for this admission?: Yes Plan: BMI of more than 31. Diet exercise weight loss lifestyle modifications discussed with the patient. (8) PVD (peripheral vascular disease) Is this a current diagnosis for this admission?: Yes Plan: Patient has history of peripheral vascular disease and CT scan suggestive of a 70% stenosis in the right common iliac artery. Continue home dose Cilostazol and statin Patient is to follow-up with vascular surgeon as an outpatient. (9) Sepsis Is this a current diagnosis for this admission?: Yes Plan: Resolved. Due to #1. (10) Restless leg syndrome Is this a current diagnosis for this admission?: Yes Plan: History of chronic persistent restless leg. TSH WNL. Patient is stating he could not get much sleep due to restless leg. Would like to be started on ropinirole. - Time Time Spent with patient: 25-34 minutes Anticipated Discharge Disposition: Home with Home Health Anticipated Discharge Timeframe: within 24 hours
[2020-06-14] MEDS: NORMAL SALINE 1000 ML 1,000 ML IV PRN ×2 (14:54→21:21)
[2020-06-14] MEDS ORDERED: ROPINIROLE HCL 0.25 MG TABLET PO ONE (15:30)
[2020-06-14] MEDS: ATORVASTATIN CALCIUM 10 MG TABLET PO SCH (21:21)
[2020-06-14] MEDS ORDERED: ROPINIROLE HCL 1 MG TABLET PO SCH (22:00)
[2020-06-15] MEDS: LABETALOL HCL INJ 20 MG/4 ML DISP.SYRIN IV PRN (00:44)
[2020-06-15] MEDS: NORMAL SALINE 1000 ML 1,000 ML IV PRN (05:27)
[2020-06-15] MEDS: PANTOPRAZOLE SODIUM 40 MG TABLET.DR PO SCH (05:27)
[2020-06-15 05:55] LABS: HEMATOCRIT 32.4 % (37.9-51.0); HEMOGLOBIN 11.5 g/dL (13.5-17.0); MEAN CORPUSCULAR HEMOGLOBIN 32.4 pg (27.0-33.4); MEAN CORPUSCULAR HGB CONC 35.4 g/dL (32.0-36.0); MEAN CORPUSCULAR VOLUME 92 fl (80-97); PLATELET COUNT 249 10^3/uL (150-450); RED BLOOD COUNT 3.54 10^6/uL (4.35-5.55); RED CELL DISTRIBUTION WIDTH 13.7 % (11.5-14.0); WHITE BLOOD COUNT 9.9 10^3/uL (4.0-10.5)
[2020-06-15 06:21] LABS: ANION GAP 7 (5-19); BLOOD UREA NITROGEN 9 mg/dL (7-20); CALCIUM 8.4 mg/dL (8.4-10.2); CARBON DIOXIDE 23 mmol/L (22-30); CHLORIDE 106 mmol/L (98-107); GLUCOSE 112 mg/dL (75-110); POTASSIUM 3.8 mmol/L (3.6-5.0)
[2020-06-15 06:25] LABS: APPEARANCE,URINE CLEAR; BILIRUBIN,URINE NEGATIVE (NEGATIVE); COLOR,URINE YELLOW; GLUCOSE, URINE NEGATIVE (NEGATIVE); KETONES,URINE NEGATIVE (NEGATIVE); PROTEIN,URINE 100 mg/dL (NEGATIVE)
[2020-06-15] MEDS: TAMSULOSIN HCL 0.4 MG CAP.SR.24H PO SCH (09:29)
[2020-06-15] MEDS: LOSARTAN POTASSIUM 50 MG TABLET PO SCH (09:29)
[2020-06-15] MEDS: FINASTERIDE 5 MG TABLET PO SCH (09:30)
[2020-06-15] MEDS: SERTRALINE HCL 50 MG TABLET PO SCH (09:30)
[2020-06-15] MEDS: CILOSTAZOL 100 MG TABLET PO SCH (09:31)
[2020-06-15] MEDS ORDERED: AMLODIPINE BESYLATE 5 MG TABLET PO SCH (10:00)
[2020-06-15] MEDS ORDERED: METOPROLOL SUCCINATE 50 MG TAB.SR.24H PO SCH (10:00)
[2020-06-15 12:23] VITALS: BP 159/74
--- NOTE | 2020-06-17 15:15 | PDOC DISCHARGE SUMMARY ---
Impression - Admit/DC Date/PCP Admission Date/Primary Care Provider: 06/07/20 08:22 ANDREAS BAEZ MD Discharge Date: 06/17/20 - Discharge Diagnosis (1) Hematuria Is this a current diagnosis for this admission?: Yes (2) Cholecystitis, acute with cholelithiasis Is this a current diagnosis for this admission?: Yes (3) Urinary retention Is this a current diagnosis for this admission?: Yes (4) EKG abnormalities Is this a current diagnosis for this admission?: Yes (5) HTN (hypertension) Is this a current diagnosis for this admission?: Yes (6) Leukocytosis Is this a current diagnosis for this admission?: Yes (7) Obesity (BMI 30.0-34.9) Is this a current diagnosis for this admission?: Yes (8) PVD (peripheral vascular disease) Is this a current diagnosis for this admission?: Yes (9) Sepsis Is this a current diagnosis for this admission?: Yes (10) Restless leg syndrome Is this a current diagnosis for this admission?: Yes - Additional Information Resuscitation Status: Do Not Resuscitate Discharge Diet: Regular Discharge Activity: Activity As Tolerated Referrals: ROSETTA FRANCO MD [ACTIVE STAFF] - 06/18/20 10:45 am KIRTI PATRICIA MD [NO LOCAL MD] - 07/03/20 9:00 am (Follow up appointment) Prescriptions: Tamsulosin HCl [Flomax 0.4 mg Cap.sr] 0.4 mg PO DAILY 30 Days #30 cap.sr.24h Losartan Potassium 100 mg PO DAILY 30 Days #30 tablet Amlodipine Besylate [Norvasc 5 mg Tablet] 5 mg PO DAILY 30 Days #30 tablet Finasteride [Proscar 5 mg Tablet] 5 mg PO DAILY 30 Days #30 tablet Ropinirole HCl 1 mg PO QHS 30 Days #30 tablet Home Medications: Atorvastatin Calcium [Lipitor 10 mg Tablet] 10 mg PO QHS 06/07/20 Cilostazol [Pletal 100 mg Tablet] 100 mg PO BID 06/07/20 Metoprolol Succinate [Toprol Xl 50 mg Tab.sr] 50 mg PO DAILY 06/07/20 Pantoprazole Sodium 20 mg PO DAILY 06/07/20 Sertraline HCl 50 mg PO DAILY 06/07/20 Umeclidinium Brm/Vilanterol Tr [Anoro Ellipta 62.5-25 Mcg INH] 1 each IH DAILY 06/07/20 Amlodipine Besylate [Norvasc 5 mg Tablet] 5 mg PO DAILY 30 Days #30 tablet 06/15/20 Finasteride [Proscar 5 mg Tablet] 5 mg PO DAILY 30 Days #30 tablet 06/15/20 Losartan Potassium 100 mg PO DAILY 30 Days #30 tablet 06/15/20 Ropinirole HCl 1 mg PO QHS 30 Days #30 tablet 06/15/20 Tamsulosin HCl [Flomax 0.4 mg Cap.sr] 0.4 mg PO DAILY 30 Days #30 cap.sr.24h 06/15/20 History of Present Illiness History of Present Illness: As per admitting physician's note LORETO GUERRERO is a 75 year old male with hist ory of hypertension, chronic smoker, severe peripheral vascular disease, chronic back pain with multiple surgeries, has urinary retention Du's catheter was placed in the emergency room, past 3 L of urine as per the patient came to the emergency room with complaints of falls and weakness extensive work-up was done found to have acute cholecystitis. Surgery was consulted their impression is patient need cardiology clearance prior to surgery. Hospital Course Hospital Course: (1) Hematuria Moderate improvement. H&H stable. Repeat UA positive for small RBC chills present presentation. Likely traumatic due to Du cath placement. Held Lovenox. IV resuscitation guided by volume status. Monitor H&H. Bladder ultrasound negative for any masses. Plan was obtained for patient with urologist on 06/23/2020. Patient was discharged with home health was advised to come back to ED if hematuria gets worse. (2) Cholecystitis, acute with cholelithiasis Presented with acute gangrenous cholecystitis as per intraoperative note. Status post cholecystectomy. Presented with elevated WBC count and CT abdomen shows acute cholecystitis. Denies any nausea, abdominal pain. Tolerant. Having normal bowel movement. Received a full course of IV Zosyn. Asymptomatic. Afebrile. WBC WNL. (3) Urinary retention Persistent urinary retention. Du catheter in place. Failed bladder training. 06/11/2020 attempt was made to remove Du cath however patient was retaining urine and Du cath had to be reinserted. Denies any history of previous urinary retention. Endorses history of BPH. Presented with distended bladder. Likely worsened due to acute illness. CT scan shows enlarged prostate on admission. Was a started on finasteride and Flomax. Du care. Outpatient urology follow-up. Patient was discharged with home health home health for further care and an appointment was made for him to follow-up with urologist on 06/23/2020. (4) EKG abnormalities Cardiology consulted; has cleared patient for surgery (5) HTN (hypertension) Normotensive. Euvolemic. Resumed home meds. Adjust meds as needed. Outpatient PCP follow-up. (6) Leukocytosis Mild leukocytosis. No sign of acute infection. Afebrile. (7) Obesity (BMI 30.0-34.9) BMI of more than 31. Diet exercise weight loss lifestyle modifications discussed with the patient. (8) PVD (peripheral vascular disease) Patient has history of peripheral vascular disease and CT scan suggestive of a 70% stenosis in the right common iliac artery. Continue home dose Cilostazol and statin Patient is to follow-up with vascular surgeon as an outpatient. (9) Sepsis Resolved. Due to #1. (10) Restless leg syndrome Moderate improvement after being started on ropinirole. History of chronic persistent restless leg. TSH WNL. Patient is stating he could not get much sleep due to restless leg. Discharged on ropinirole. Physical Exam Vital Signs: Temp Pulse Resp BP Pulse Ox 98.2 F 78 17 159/74 H 95 06/15/20 12:20 06/15/20 12:20 06/15/20 12:20 06/15/20 12:20 06/15/20 12:20 Intake & Output 06/16/20 06/17/20 06/18/20 06:59 06:59 06:59 Intake Total 1000 Balance 1000 General appearance: PRESENT: no acute distress, obese, well-developed, well- nourished Neck exam: ABSENT: carotid bruit, JVD, lymphadenopathy, thyromegaly Respiratory exam: PRESENT: clear to auscultation sun. ABSENT: rales, rhonchi, wheezes GI/Abdominal exam: PRESENT: normal bowel sounds, soft. ABSENT: distended, guarding, mass, organolmegaly, rebound, tenderness Gentrourinary exam: PRESENT: indwelling catheter Neurological exam: PRESENT: alert, awake, oriented to person, oriented to place, oriented to time, oriented to situation, CN II-XII grossly intact. ABSENT: motor sensory deficit Results Laboratory Results: WBC 9.9 10^3/uL (4.0-10.5) 06/15/20 05:21 RBC 3.54 10^6/uL (4.35-5.55) L 06/15/20 05:21 Hgb 11.5 g/dL (13.5-17.0) L 06/15/20 05:21 Hct 32.4 % (37.9-51.0) L 06/15/20 05:21 MCV 92 fl (80-97) 06/15/20 05:21 MCH 32.4 pg (27.0-33.4) 06/15/20 05:21 MCHC 35.4 g/dL (32.0-36.0) 06/15/20 05: RDW 13.7 % (11.5-14.0) 06/15/20 05:21 Plt Count 249 10^3/uL (150-450) 06/15/20 05:21 Lymph % (Auto) 13.9 % (13-45) 06/13/20 04:57 [place] % (Auto) 11.6 % (3-13) 06/13/20 04:57 Eos % (Auto) 4.9 % (0-6) 06/13/20 04:57 Baso % (Auto) 1.2 % (0-2) 06/13/20 04:57 Absolute Neuts (auto) 7.5 10^3/uL (1.7-8.2) 06/13/20 04:57 Absolute Lymphs (auto) 1.5 10^3/uL (0.5-4.7) 06/13/20 04:57 Absolute Monos (auto) 1.3 10^3/uL (0.1-1.4) 06/13/20 04:57 Absolute Eos (auto) 0.5 10^3/uL (0.0-0.6) 06/13/20 04:57 Absolute Basos (auto) 0.1 10^3/uL (0.0-0.2) 06/13/20 04:57 Total Counted 100 06/08/20 16:35 Seg Neutrophils % 68.4 % (42-78) 06/13/20 04:57 Seg Neuts % (Manual) 85 % (42-78) H 06/08/20 16:35 Lymphocytes % (Manual) 8 % (13-45) L 06/08/20 16:35 Monocytes % (Manual) 5 % (3-13) 06/08/20 16:35 Eosinophils % (Manual) 2 % (0-6) 06/08/20 16:35 Basophils % (Manual) 0 % (0-2) 06/08/20 16:35 Abs Neuts (Manual) 9.1 10^3/uL (1.7-8.2) H 06/08/20 16:35 Abs Lymphs (Manual) 0.9 10^3/uL (0.5-4.7) 06/08/20 16:35 Abs Monocytes (Manual) 0.5 10^3/uL (0.1-1.4) 06/08/20 16:35 Absolute Eos (Manual) 0.2 10^3/uL (0.0-0.6) 06/08/20 16:35 Abs Basophils (Manual) 0.0 10^3/uL (0.0-0.2) 06/08/20 16:35 Platelet Comment ADEQUATE 06/08/20 16:35 Anisocytosis SLIGHT 06/08/20 16:35 PT 15.5 SEC (11.4-15.4) H 06/06/20 17:50 INR 1.21 06/06/20 17:50 VBG pH 7.46 (7.30-7.42) H 06/06/20 17:50 VBG pCO2 31.6 mmHg (35-63) L 06/06/20 17:50 VBG HCO3 22.1 mmol/L (20-32) 06/06/20 17:50 VBG Base Excess -0.5 mmol/L 06/06/20 17:50 Sodium 135.6 mmol/L (137-145) L 06/15/20 05:21 Potassium 3.8 mmol/L (3.6-5.0) 06/15/20 05:21 Chloride 106 mmol/L (98-107) 06/15/20 05:21 Carbon Dioxide 23 mmol/L (22-30) 06/15/20 05:21 Anion Gap 7 (5-19) 06/15/20 05:21 BUN 9 mg/dL (7-20) 06/15/20 05:21 Creatinine 0.74 mg/dL (0.52-1.25) 06/15/20 05:21 Est GFR ( Amer) > 60 (>60) 06/15/20 05:21 Est GFR (MDRD) Non-Af > 60 (>60) 06/15/20 05:21 Glucose 112 mg/dL (75-110) H 06/15/20 05:21 POC Glucose 125 mg/dL (70-110) H 06/08/20 11:42 Lactic Acid 1.2 mmol/L (0.7-2.1) 06/07/20 05:35 Calcium 8.4 mg/dL (8.4-10.2) 06/15/20 05:21 Total Bilirubin 0.8 mg/dL (0.2-1.3) 06/11/20 06:47 Direct Bilirubin 0.3 mg/dL (0.0-0.4) 06/11/20 06:47 Neonat Total Bilirubin Not Reportable 06/11/20 06:47 Neonat Direct Bilirubin Not Reportable 06/11/20 06:47 Neonat Indirect Bili Not Reportable 06/11/20 06:47 AST 41 U/L (17-59) 06/11/20 06:47 ALT 39 U/L (<50) 06/11/20 06:47 Alkaline Phosphatase 66 U/L (38-126) 06/11/20 06:47 C-Reactive Protein 165.5 mg/L (<10.0) H 06/06/20 17:50 NT-Pro-B Natriuret Pep 674 pg/mL (<125) H 06/08/20 04:56 Total Protein 5.8 g/dL (6.3-8.2) L 06/11/20 06:47 Albumin 2.9 g/dL (3.5-5.0) L 06/11/20 06:47 Triglycerides 65 mg/dL (<150) 06/08/20 04:56 Cholesterol 93.98 mg/dL (0-200) 06/08/20 04:56 LDL Cholesterol Direct 43 mg/dL (<100) 06/08/20 04:56 VLDL Cholesterol 13.0 mg/dL (10-31) 06/08/20 04:56 HDL Cholesterol 31 mg/dL (>40) L 06/08/20 04:56 TSH 2.08 uIU/mL (0.47-4.68) 06/08/20 04:56 Urine Color YELLOW 06/15/20 05:10 Urine Appearance CLEAR 06/15/20 05:10 Urine pH 7.0 (5.0-9.0) 06/15/20 05:10 Ur Specific [place] 1.010 06/15/20 05:10 Urine Protein 100 mg/dL (NEGATIVE) H 06/15/20 05:10 Urine Glucose (UA) NEGATIVE mg/dL (NEGATIVE) 06/15/20 05:10 Urine Ketones NEGATIVE mg/dL (NEGATIVE) 06/15/20 05:10 Urine Blood SMALL (NEGATIVE) H 06/15/20 05:10 Urine Nitrite NEGATIVE (NEGATIVE) 06/10/20 16:39 Urine Nitrite (Reflex) NEGATIVE (NEGATIVE) 06/15/20 05:10 Urine Bilirubin NEGATIVE (NEGATIVE) 06/15/20 05:10 Urine Urobilinogen 2.0 mg/dL (<2.0) H 06/15/20 05:10 Ur Leukocyte Esterase NEGATIVE (NEGATIVE) 06/10/20 16:39 Leukocyte Esterase Rfl NEGATIVE (NEGATIVE) 06/15/20 05:10 Urine WBC (Auto) 1 /HPF 06/10/20 16:39 Urine RBC (Auto) 31 /HPF 06/15/20 05:10 Urine WBC (Reflex) 1 /HPF 06/15/20 05:10 Squamous Epi Cells Auto 5 /HPF 06/14/20 10:30 Urine Mucus (Auto) RARE /LPF 06/15/20 05:10 Urine Ascorbic Acid NEGATIVE (NEGATIVE) 06/15/20 05:10 Urine Opiates Screen NEGATIVE 06/07/20 00:15 Urine Methadone Screen NEGATIVE 06/07/20 00:15 Ur Barbiturates Screen NEGATIVE 06/07/20 00:15 Ur Phencyclidine Scrn NEGATIVE 06/07/20 00:15 Ur Amphetamines Screen NEGATIVE 06/07/20 00:15 U Benzodiazepines Scrn NEGATIVE 06/07/20 00:15 Urine Cocaine Screen NEGATIVE 06/07/20 00:15 U Marijuana (THC) Screen NEGATIVE 06/07/20 00:15 Influenza A (RT-PCR) NEGATIVE (NEGATIVE) 06/07/20 03:45 Influenza B (RT-PCR) NEGATIVE (NEGATIVE) 06/07/20 03:45 RSV (RT-PCR) NEGATIVE (NEGATIVE) 06/07/20 03:45 SARS-CoV-2 Rap RNA(RT-PCR) NEGATIVE (NEGATIVE) 06/07/20 03:45 06/08/20 04:56 NT-Pro-B Natriuret Pep 674 H Impressions: Chest X-Ray 06/06/20 17:15 IMPRESSION: NO ACUTE RADIOGRAPHIC FINDING IN THE CHEST. Thoracic Spine X-Ray 06/06/20 17:15 IMPRESSION: NO SIGNIFICANT RADIOGRAPHIC FINDING IN THE THORACIC SPINE. Head CT 06/06/20 17:27 IMPRESSION: NORMAL BRAIN CT WITHOUT CONTRAST. EVIDENCE OF ACUTE STROKE: NO. Lumbar Spine MRI 06/06/20 18:46 IMPRESSION: 1. Probable massive distention of the urinary bladder that is incompletely imaged, would recommend follow-up CT of the abdomen and pelvis to better evaluate. 2. Diffuse degenerative disc disease and facet arthropathy producing some levels of canal stenosis and foraminal narrowing as above. Abdomen/Pelvis CT 06/07/20 00:56 IMPRESSION: 1. Cholelithiasis with findings consistent with acute cholecystitis, recommend surgical consultation. 2. Massive urinary bladder distention with multiple bladder stones within apparent bladder diverticulum. Consider Du catheter placement. 3. Diverticulosis. 4. Mild prostate enlargement. 5. Likely approximate 70% stenosis in the right common iliac artery, please correlate with any right lower extremity symptoms and consider nonemergent vascular surgery consultation. Renal Ultrasound 06/12/20 00:00 IMPRESSION: Decompressed urinary bladder with Du catheter within the bladder lumen. Diffusely thickened bladder wall. Consider correlation with cystoscopy. Mild prostatic megaly. Stroke Is this a Stroke Patient?: No Acute Heart Failure Is this a Heart Failure Patient?: No
== END 2020-06-15 13:29 | disposition home or self-care (01) | DRG 854 ==
LOC: ER 16:39 → EH 06-07 08:22 → 5TH 06-07 13:56 → 5 06-13 23:36
PROVIDERS: ADMIT Internal Medicine; ATTEND Internal Medicine
PROC: B24BZZ4 Ultrasonography of Heart with Aorta, Transesophageal (ICD-10-PCS; 2020-06-07)
PROC: 0FT44ZZ Resection of Gallbladder, Percutaneous Endoscopic Approach (ICD-10-PCS; principal; 2020-06-08 13:30)
DX: A41.9 Sepsis, unspecified organism (principal); K80.12 Calculus of gallbladder with acute and chronic cholecystitis without obstruction; K82.A1 Gangrene of gallbladder in cholecystitis; G89.29 Other chronic pain; M54.5 Low back pain; I10 Essential (primary) hypertension; N40.1 Benign prostatic hyperplasia with lower urinary tract symptoms; R33.8 Other retention of urine; I45.10 Unspecified right bundle-branch block; R94.31 Abnormal electrocardiogram [ECG] [EKG]; E66.9 Obesity, unspecified; F17.210 Nicotine dependence, cigarettes, uncomplicated; I73.9 Peripheral vascular disease, unspecified; G25.81 Restless legs syndrome; Z91.81 History of falling; Z88.2 Allergy status to sulfonamides; Z20.828 Contact with and (suspected) exposure to other viral communicable diseases; Z68.28 Body mass index [BMI] 28.0-28.9, adult
CPT/HCPCS: 00790; 36415; 51702; 70450; 71045; 72070; 72158; 74177; 76775; 80048; 80053; 80061; 80307; 81001; 82803; 82962; 83605; 83880; 84443; 85025; 85027; 85610; 86140; 87040; 87070; 87086; 88304; 93005; 93010; 93306; 96361; 96365; 96375; 99285; 0241U; A9576; C9290; C9803; J1100; J1170; J1650; J2060; J2250; J2405; J2543; J2704; J3010; J3490; J7030; J7050; J7120